=== PATIENT | male | born 1980 ===

== ENCOUNTER 2018-06-05 11:06 | Inpatient (IN) ==
[2018-06-05] MEDS ORDERED: Morphine Inj 4 MG/ML Vial ONE (11:12)
[2018-06-05] MEDS ORDERED: HYDROmorphone PF Inj 1 MG/ML Ampul ONE (11:15)
[2018-06-05] MEDS ORDERED: Midazolam Inj 5 MG/ML 1 ML Vial ONE (11:19)
[2018-06-05] MEDS ORDERED: Propofol Inj 500 MG/50 ML Vial ONE (11:20)
[2018-06-05 11:35] LABS: Baso % (Auto) 0.6 % (0.0-2.0); Eos # (Auto) 0.1 th/mm3 (0.0-0.4); Eos % (Auto) 1.7 % (0.0-4.0); Hematocrit 40.1 % (39.0-51.0); Hemoglobin 13.1 gm/dL (13.0-17.0); Lymph # (Auto) 1.6 th/mm3 (1.0-4.8); Lymph % (Auto) 21.6 % (9.0-44.0); Mean Corpuscular HGB Conc 32.6 % (32.0-36.0); Mean Corpuscular Hemoglobin 19.5 pg (27.0-34.0); Mean Corpuscular Volume 59.8 fL (80.0-100.0); Mean Platelet Volume 8.8 fL (7.0-11.0); Mono # (Auto) 0.4 th/mm3 (0.0-0.9); Mono % (Auto) 5.6 % (0.0-8.0); Neut # (Auto) 5.2 th/mm3 (1.8-7.7); Neut % (Auto) 70.5 % (16.0-70.0); Platelet Count 218 th/mm3 (150-450); Red Blood Count 6.72 mil/mm3 (4.50-5.90); Red Cell Distribution Width 16.1 % (11.6-17.2); White Blood Count 7.4 th/mm3 (4.0-11.0)
[2018-06-05] MEDS ORDERED: Naloxone Inj 0.4 MG/ML Vial IV.PUSH PRN (11:36)
[2018-06-05] MEDS ORDERED: Post-op Orders (for Pharmacy) OTHER ONE (11:36)
[2018-06-05] MEDS ORDERED: Bisacodyl 10 MG Supp RECTAL PRN (11:36)
--- NOTE | 2018-06-05 11:40 | XR ---
EXAM DATE: 06/05/2018 11:35 AM EDT AGE/SEX: 89 years / Male INDICATIONS: Trauma alert. Fell from roof, chest, pelvis and bilateral upper extremity pain CLINICAL DATA: This is the patient's initial encounter. Patient reports that signs and symptoms have been present for 1 day and indicates a pain score of 10/10. MEDICAL/SURGICAL HISTORY: Non-responsive. Non-responsive. COMPARISON: No prior exams available for comparison. FINDINGS: Supine film on back board reveals no pneumothorax. Mediastinum is appropriate. No displaced rib fract ures. CONCLUSION: Negative AP chest from backboard for trauma. Electronically signed by: Rm Osorio MD 06/05/2018 11:39 AM EDT
--- NOTE | 2018-06-05 11:41 | XR ---
EXAM DATE: 06/05/2018 11:38 AM EDT AGE/SEX: 89 years / Male INDICATIONS: Trauma alert, fall from roof. Pain in chest, pelvis and bilateral upper extremities CLINICAL DATA: This is the patient's initial encounter. Patient reports that signs and symptoms have been present for 1 day and indicates a pain score of 10/10. MEDICAL/SURGICAL HISTORY: Non-responsive. Non-responsive. COMPARISON: No prior exams available for comparison. FINDINGS: Artifact from backboard without obvious fracture or dislocation the pelvis. CONCLUSION: Limited exam, negative Electronically signed by: Rm Osorio MD 06/05/2018 11:40 AM EDT
--- NOTE | 2018-06-05 11:42 | ED ---
HPI General Chief Complaint: Trauma Alert Stated Complaint: Trauma Alert Time Seen by Provider: 06/05/18 11:18 History of Present Illness HPI narrative: This patient presents as a trauma alert. I gave report to trauma surgeon Dr. Fajardo who was present on arrival of the patient. This is a 46- year-old male who fell off of a roof approximately 15 feet at a construction site. Reportedly had head and facial injury as well as bilateral humerus fractures. Symptoms are severe. He is in a lot of pain. Duration 1 hour. Symptoms are worse with movement. No alleviating factors. Unclear if he had LOC. His main complaint is left arm pain. Related Data Allergies Allergy/AdvReac Type Severity Reaction Status Date / Time No Allergy Information Allergy Verified 06/05/18 12:27 Available Review of Systems ROS: all other systems reviewed are negative Exam Narrative Exam Narrative: GENERAL: Well-nourished, well-developed patient in no apparent distress. SKIN: Focused skin assessment reveals no rash and nodules. Skin is Warm and dry. HEAD: Has 1 cm laceration near the right lateral orbit. There is ecchymosis there. Normocephalic. EYES: Pupils equal and round. No scleral icterus. No injection or drainage. ENT: No nasal bleeding or discharge. Mucous membranes pink and moist. NECK: Trachea midline. No JVD. C-collar maintained CARDIOVASCULAR: Regular rate and rhythm. No murmur appreciated. RESPIRATORY: No accessory muscle use. Clear to auscultation. Breath sounds equal bilaterally. GASTROINTESTINAL: Abdomen soft, non-tender, nondistended. Hepatic and splenic margins not palpable. MUSCULOSKELETAL: Has deformity of the left elbow with crepitus and obvious dislocation. He is neurovascularly intact. There is tenderness at the right elbow. No clubbing. No cyanosis. No edema. NEUROLOGICAL: Awake and screaming in pain. No obvious cranial nerve deficits. Motor grossly within normal limits. Normal speech. PSYCHIATRIC: Appropriate mood and affect; insight and judgment reduced . Course Initial Documented Vital Signs Respiratory Rate 20 06/05/18 11:38 Pulse Oximetry 99 06/05/18 11:38 Last Documented Vital Signs Respiratory Rate 17 06/05/18 12:51 Pulse Oximetry 99 06/05/18 11:38 Procedures Orthopedic Joint Reduction Joint #1: Time Out Performed: No Side: left Joint Reduction Location: elbow Analgesia: procedural sedation Local anesthetic used: other anesthetic (Propofol) Amount of anesthetic used (mL): 60 Technique Used: traction/counter-traction Post-Reduction Neuro Exam: intact Post-Reduction Vascular Exam: intact Post Reduction X-Ray Obtained: Yes Post Reduction X-Ray Results: reduced Splint Applied: Yes Patient Tolerated Procedure: well Additional Comments: 15 minutes continuous bedside time spent specifically for the joint reduction Critical Care Time Critical Care Time: Yes Total Critical Care Time: 80 Attestation: Aggregate critical care time was 80 minutes. Time to perform other separately billable procedures was not included in the critical care time. My time did not include minutes spent treating any other patients simultaneously or on activities that did not directly contribute to the patient's treatment. The services I provided to this patient were to treat and/or prevent clinically significant deterioration that could result in: Cardiopulmonary arrest, hemorrhagic shock, permanent nerve damage in the arm I provided critical care services requiring my management, as noted below: Chart data review, documentation time, medication orders and management, vital sign assessments/reviewing monitor data, ordering and reviewing lab tests, ordering and interpreting/reviewing x-rays and diagnostic studies, care of the patient and discussion of the patient with the admitting physicians. Medical Decision Making MDM Narrative Medical decision making narrative: This patient arrives critically ill as a trauma alert. 2 IVs placed and I gave him 2 L normal saline IV bolus. He was given an medicine. Trauma survey ordered. Reviewed all his images. He has a fracture dislocation of the left elbow. I gave him conscious sedation as an procedure note. Had proper reduction followed by splinting and confirmed by postreduction x-ray. He had full CT imaging as well. He was admitted to intensive care under the trauma surgeon Medical Screen Exam Complete: Yes Emergency Medical Condition: Yes Differential Diagnosis Differential Diagnosis: Hemorrhagic shock, intracranial hemorrhage, fracture dislocation of elbow Medical Records Medical records reviewed: Yes I reviewed the patient's medical records. Lab Data Lab results narrative: Labs are normal Result diagrams: 06/05/18 11:15 06/05/18 11:15 Lab Results 06/05/18 06/05/18 06/05/18 Range/Units 11:15 11:15 11:15 WBC 7.4 (4.0-11.0) th/mm3 RBC 6.72 H (4.50-5.90) mil/mm3 Hgb 13.1 (13.0-17.0) gm/dL POC Hgb (Calc) 13.9 (13.0-17.0) g/dL Hct 40.1 (39.0-51.0) % POC Hct 41.0 (39-51.0) % MCV 59.8 L (80.0-100.0) fL MCH 19.5 L (27.0-34.0) pg MCHC 32.6 (32.0-36.0) % RDW 16.1 (11.6-17.2) % Plt Count 218 (150-450) th/mm3 MPV 8.8 (7.0-11.0) fL Prelim Diff (Auto) Slide review pending Neut % (Auto) 70.5 H (16.0-70.0) % Lymph % (Auto) 21.6 (9.0-44.0) % Nicholas % (Auto) 5.6 (0.0-8.0) % Eos % (Auto) 1.7 (0.0-4.0) % Baso % (Auto) 0.6 (0.0-2.0) % Neut # (Auto) 5.2 (1.8-7.7) th/mm3 Lymph # (Auto) 1.6 (1.0-4.8) th/mm3 Nicholas # (Auto) 0.4 (0.0-0.9) th/mm3 Eos # (Auto) 0.1 (0.0-0.4) th/mm3 Baso # (Auto) 0.0 (0.0-0.2) th/mm3 WBC Differential . Diff Scan Auto diff confirmed Differential Comment . Platelet Estimate Normal (Normal) Platelet Morphology Normal (Normal) Tear Drop Cells 1+ H (None) Ovalocytes 2+ H (None) Keratocytes Occ H (None) PT 10.7 (9.8-11.6) sec INR 1.1 Ratio APTT 23.9 (23.4-31.7) sec POC Sodium 143 (137-144) mmol/L Sodium (136-145) meq/L POC Potassium 3.7 (3.6-5.0) mmol/L Potassium (3.5-5.1) meq/L POC Chloride 106 (102-111) mmol/L Chloride (98-107) meq/L Carbon Dioxide (21.0-32.0) meq/L Anion Gap (5-15) meq/L POC BUN 17 (5-21) mg/dL BUN (7-18) mg/dL Creatinine (0.60-1.30) mg/dL POC Creatinine 1.0 (0.6-1.3) mg/dL Estimated GFR (>89) mL/min POC Glucose 166 H (68-110) mg/dL Random Glucose (74-106) mg/dL Calcium (8.5-10.1) mg/dL Serum Alcohol (0-5) mg/dL Blood Type Antibody Screen 06/05/18 06/05/18 Range/Units 11:15 11:15 WBC (4.0-11.0) th/mm3 RBC (4.50-5.90) mil/mm3 Hgb (13.0-17.0) gm/dL POC Hgb (Calc) (13.0-17.0) g/dL Hct (39.0-51.0) % POC Hct (39-51.0) % MCV (80.0-100.0) fL MCH (27.0-34.0) pg MCHC (32.0-36.0) % RDW (11.6-17.2) % Plt Count (150-450) th/mm3 MPV (7.0-11.0) fL Prelim Diff (Auto) Neut % (Auto) (16.0-70.0) % Lymph % (Auto) (9.0-44.0) % Nicholas % (Auto) (0.0-8.0) % Eos % (Auto) (0.0-4.0) % Baso % (Auto) (0.0-2.0) % Neut # (Auto) (1.8-7.7) th/mm3 Lymph # (Auto) (1.0-4.8) th/mm3 Nicholas # (Auto) (0.0-0.9) th/mm3 Eos # (Auto) (0.0-0.4) th/mm3 Baso # (Auto) (0.0-0.2) th/mm3 WBC Differential Diff Scan Differential Comment Platelet Estimate (Normal) Platelet Morphology (Normal) Tear Drop Cells (None) Ovalocytes (None) Keratocytes (None) PT (9.8-11.6) sec INR Ratio APTT (23.4-31.7) sec POC Sodium (137-144) mmol/L Sodium 144 (136-145) meq/L POC Potassium (3.6-5.0) mmol/L Potassium 3.8 (3.5-5.1) meq/L POC Chloride (102-111) mmol/L Chloride 111 H (98-107) meq/L Carbon Dioxide 25.7 (21.0-32.0) meq/L Anion Gap 7 (5-15) meq/L POC BUN (5-21) mg/dL BUN 18 (7-18) mg/dL Creatinine 1.17 (0.60-1.30) mg/dL POC Creatinine (0.6-1.3) mg/dL Estimated GFR 54 L (>89) mL/min POC Glucose (68-110) mg/dL Random Glucose 164 H (74-106) mg/dL Calcium 8.7 (8.5-10.1) mg/dL Serum Alcohol Less than 3 (0-5) mg/dL Blood Type A Positive Antibody Screen Negative Imaging Data Attestation: I personally reviewed and interpreted this imaging study as follows : My impression: Patient has a fracture right radial head. There is a fracture dislocation of left elbow. Chest CT shows fracture of the right fourth and fifth rib without pneumothorax. Radiologist's impression: Humerus X-Ray 06/05/18 00:00 CONCLUSION: Possible fracture of the right radial head. Suggest dedicated views of the right elbow when patient condition permits. Humerus is intact without fracture. Humerus X-Ray 06/05/18 00:00 CONCLUSION: Fracture dislocation at the elbow joint with a fracture through the radial head. Associated soft tissue swelling is present. The left humerus is intact. Radius/Ulna X-Ray 06/05/18 00:00 CONCLUSION: Questionable fracture involving the radial head. Suggest multiple dedicated views of the elbow for further evaluation. Radius/Ulna X-Ray 06/05/18 00:00 CONCLUSION: Complete posterior elbow dislocation and suspected fracture through the radial head. Radius/Ulna X-Ray 06/05/18 00:00 CONCLUSION: 1. Reduction of the elbow joint dislocation. 2. However, there are osseous densities projecting over the antecubital fossa which may represent displaced fracture fragments the joint space. Chest X-Ray 06/05/18 11:09 CONCLUSION: Negative AP chest from backboard for trauma. Pelvis X-Ray 06/05/18 11:09 CONCLUSION: Limited exam, negative Abdomen/Pelvis CT 06/05/18 11:14 CONCLUSION: 1. No acute injury is identified within the abdomen or pelvis. 2. Small hiatal hernia with dilated fluid-filled distal esophagus. Chest CT 06/05/18 11:14 CONCLUSION: 1. There are acute fractures of the right fourth and fifth ribs, as above. No pneumothorax is present. No other acute abnormality is identified. 2. Dilated fluid-filled esophagus likely secondary to reflux. Cervical Spine CT 06/05/18 11:15 CONCLUSION: No acute cervical spine abnormality is identified. There is multilevel degenerative disc disease. Face CT 06/05/18 11:15 CONCLUSION: 1. No maxillofacial fracture is identified. 2. There is right frontal scalp and right periorbital soft tissue swelling. Head CT 06/05/18 11:15 CONCLUSION: 1. Right frontal scalp and right periorbital soft tissue swelling. There is associated subcutaneous air suggesting laceration or open wound. 2. The skull fracture or acute intracranial abnormality is identified. . Discharge Plan Physicians Team ED Provider: Vijay Schuster Attending Provider: Mo Gillis Other Providers: Vinnie Singh Status ED Status: Admitted Patient
[2018-06-05 11:45] LABS: Activated Partial Thrombo Time 23.9 sec (23.4-31.7); INR 1.1 Ratio; Prothrombin Time 10.7 sec (9.8-11.6)
[2018-06-05 11:49] LABS: Anion Gap 7 meq/L (5-15); Blood Urea Nitrogen 18 mg/dL (7-18); Calcium 8.7 mg/dL (8.5-10.1); Carbon Dioxide 25.7 meq/L (21.0-32.0); Chloride 111 meq/L (98-107); Glomerular Filtration Rate 54 mL/min (>89); Glucose,Random 164 mg/dL (74-106); Potassium 3.8 meq/L (3.5-5.1); Sodium 144 meq/L (136-145)
--- NOTE | 2018-06-05 11:56 | XR ---
EXAM DATE: 06/05/2018 11:45 AM EDT AGE/SEX: 89 years / Male INDICATIONS: Trauma alert, fall from roof. Pain in chest, pelvis and bilateral upper extremities CLINICAL DATA: This is the patient's initial encounter. Patient reports that signs and symptoms have been present for 1 day and indicates a pain score of 10/10. MEDICAL/SURGICAL HISTORY: Non-responsive. Non-responsive. COMPARISON: [facility], FOREARM RIGHT 1V, 06/05/2018. . FINDINGS: Single AP view of the right humerus demonstrates no humerus fracture. Medial aspect of the humeral he ad is not completely visualized. There is possible fracture of the right radial head. No soft tissue abnormality or concerning radiopaque foreign body is identified. CONCLUSION: Possible fracture of the right radial head. Suggest dedicated views of the right elbow when patient c ondition permits. Humerus is intact without fracture. Electronically signed by: Rubin Quiroz MD 06/05/2018 11:54 AM EDT
--- NOTE | 2018-06-05 11:59 | CT ---
EXAM DATE: 06/05/2018 11:51 AM EDT AGE/SEX: 89 years / Male INDICATIONS: TRAUMA ALERT. Fall from roof. CLINICAL DATA: This is the patient's initial encounter. Patient reports that signs and symptoms have been present for 1 day and indicates a pain score of Nonresponsive. MEDICAL/SURGICAL HISTORY: Non-responsive. Non-responsive. RADIATION DOSE: 64.63 CTDI (mGy) COMPARISON: No prior exams available for comparison. TECHNIQUE: CT of the head without contrast. Using automated exposure control and adjustment of the mA and/or kV according to patient size, radiation dose was kept as low as reasonably achievable to ob tain optimal diagnostic quality images. DICOM format image data is available electronically for revi ew and comparison. FINDINGS: Cerebrum: The ventricles are normal. No midline shift, mass lesion, hemorrhage or acute infarction. No extraaxial fluid collections are seen. Posterior Fossa: The cerebellum and brainstem demonstrate no acute abnormality. The 4th ventricle is midline. The cerebellopontine angle is within normal limits. Extracranial: There is a right frontal scalp and right periorbital soft tissue swelling with subcuta neous air. The globes have a normal appearance. Skull: The calvaria is intact. No skull fracture. CONCLUSION: 1. Right frontal scalp and right periorbital soft tissue swelling. There is associated subcutaneous air suggesting laceration or open wound. 2. The skull fracture or acute intracranial abnormality is identified. . Electronically signed by: Rubin Quiroz MD 06/05/2018 11:58 AM EDT
--- NOTE | 2018-06-05 12:00 | XR ---
EXAM DATE: 06/05/2018 11:47 AM EDT AGE/SEX: 89 years / Male INDICATIONS: Trauma alert. Patient fell from the roof. CLINICAL DATA: This is the patient's initial encounter. Patient reports that signs and symptoms have been present for 1 day and indicates a pain score of 10/10. MEDICAL/SURGICAL HISTORY: None. None. COMPARISON: [facility], FOREARM LEFT 1V, 06/05/2018. [facility], FOREARM LEFT 1V, 06/05/2018. . FINDINGS: Single view of the left humerus demonstrates fracture dislocation at the elbow joint with fracture th rough the radial head. The humerus is intact. Acromioclavicular joint demonstrates no abnormality. Th ere is soft tissue swelling around the elbow joint. No concerning radiopaque foreign body is identifi ed. CONCLUSION: Fracture dislocation at the elbow joint with a fracture through the radial head. Associated soft tiss ue swelling is present. The left humerus is intact. Electronically signed by: Rbuin Quiroz MD 06/05/2018 11:59 AM EDT
--- NOTE | 2018-06-05 12:02 | XR ---
EXAM DATE: 06/05/2018 11:49 AM EDT AGE/SEX: 89 years / Male INDICATIONS: Trauma alert. Patient fell from a roof. CLINICAL DATA: This is the patient's initial encounter. Patient reports that signs and symptoms have been present for 1 day and indicates a pain score of 10/10. MEDICAL/SURGICAL HISTORY: None. None. COMPARISON: [facility], HUMERUS RIGHT 1V, 06/05/2018. . FINDINGS: Single view of the forearm demonstrates no definite dislocation. However, there is a questionable abn ormality/fracture involving the radial head. Distal radius and ulna are intact. Visualized portions o f the wrist demonstrate no abnormality. There may be soft tissue swelling in the volar aspect of the proximal forearm. CONCLUSION: Questionable fracture involving the radial head. Suggest multiple dedicated views of the elbow for fu rther evaluation. Electronically signed by: Rubin Quiroz MD 06/05/2018 12:01 PM EDT
--- NOTE | 2018-06-05 12:03 | XR ---
EXAM DATE: 06/05/2018 11:42 AM EDT AGE/SEX: 89 years / Male INDICATIONS: Trauma alert, fall from roof. Pain in chest, pelvis and bilateral upper extremities CLINICAL DATA: This is the patient's initial encounter. Patient reports that signs and symptoms have been present for 1 day and indicates a pain score of 10/10. MEDICAL/SURGICAL HISTORY: Non-responsive. Non-responsive. COMPARISON: [facility] [place], HUMERUS LEFT 1V, 06/05/2018. . FINDINGS: Single view of the left forearm demonstrates dislocation at the elbow joint with proximal migration o f the radius and ulna. There is associated soft tissue swelling. The single view of the humerus obtai lorene today suggest a fracture through the radial head. There is soft tissue swelling around the elbow joint. No radiopaque foreign body is identified. CONCLUSION: Complete posterior elbow dislocation and suspected fracture through the radial head. Electronically signed by: Rubin Quiroz MD 06/05/2018 12:02 PM EDT
[2018-06-05 12:06] LABS: Ovalocytes 2+; Tear Drop Cells 1+
[2018-06-05 12:07] LABS: Platelet Estimate Normal (Normal); Platelet Morphology Normal (Normal)
--- NOTE | 2018-06-05 12:07 | XR ---
EXAM DATE: 06/05/2018 11:44 AM EDT AGE/SEX: 89 years / Male INDICATIONS: Post reduction of the left elbow. Trauma alert. Patient fell from roof. CLINICAL DATA: This is the patient's subsequent encounter. Patient reports that signs and symptoms h ave been present for 1 day and indicates a pain score of 10/10. MEDICAL/SURGICAL HISTORY: None. None. COMPARISON: [facility] [place] 1[place], [place]. . FINDINGS: Single view of the left forearm demonstrates reduction of the elbow joint dislocation. There are ossi fic densities projecting over the antecubital fossa region which may represent fracture fragments. Di stal radius and ulna are within normal limits. There is casting material along the posterior aspect o f the elbow. No radiopaque foreign body is identified. CONCLUSION: 1. Reduction of the elbow joint dislocation. 2. However, there are osseous densities projecting over the antecubital fossa which may represent di splaced fracture fragments the joint space. Electronically signed by: Rubin Quiroz MD 06/05/2018 12:06 PM EDT
--- NOTE | 2018-06-05 12:22 | CT ---
EXAM DATE: 06/05/2018 11:59 AM EDT AGE/SEX: 89 years / Male INDICATIONS: TRAUMA ALERT. Fall from a roof. CLINICAL DATA: This is the patient's initial encounter. Patient reports that signs and symptoms have been present for 1 day and indicates a pain score of Nonresponsive. MEDICAL/SURGICAL HISTORY: Non-responsive. Non-responsive. RADIATION DOSE: 5.88 CTDI (mGy) COMPARISON: No prior exams available for comparison. TECHNIQUE: Multiple contiguous axial images were obtained through the chest during bolus infusion of 94 ml Omnipaque 350 (iohexol) nonionic water-soluble contrast as a single exam dose. Images were obtained in suspended respiration using multiple row detector helical technique. Using automated exp osure control and adjustment of the mA and/or kV according to patient size, radiation dose was kept a s low as reasonably achievable to obtain optimal diagnostic quality images. DICOM format image data is available electronically for review and comparison. FINDINGS: There is respiratory motion artifact. Lungs: There is dependent atelectasis. No pneumothorax or airspace consolidation is present. Mediastinum: The heart and great vessels demonstrate no acute abnormality. There is pulsation artifa ct at the aortic root. No lymphadenopathy is identified. Pleurae: No pleural effusion or pleural thickening. Axillae: No lymphadenopathy. Musculoskeletal: There is an acute nondisplaced fracture of the right posterior fourth rib and the p osterior and lateral fifth rib. No other fracture is identified. Other: Esophagus is dilated and mostly fluid-filled. Please refer to abdomen and pelvis CT report fo r description of the subdiaphragmatic findings. CONCLUSION: 1. There are acute fractures of the right fourth and fifth ribs, as above. No pneumothorax is presen t. No other acute abnormality is identified. 2. Dilated fluid-filled esophagus likely secondary to reflux. Electronically signed by: Rubin Quiroz MD 06/05/2018 12:21 PM EDT
--- NOTE | 2018-06-05 12:23 | MH ---
cc: Mo Gillis MD DATE OF ADMISSION: 06/05/2018 ADMITTING DIAGNOSIS: Fall from a height. HISTORY OF PRESENT ILLNESS: This 28ish year-old male who fell off a scaffolding apparently more than 7 feet, landed apparently on his face and right side of the body. He was brought into our institution as per T1 trauma alert. On arrival, the patient is awake, alert, oriented, screaming and yelling complaining about pain in his left arm. PAST MEDICAL AND SURGICAL HISTORY: Unknown. CURRENT MEDICATIONS: Unknown. ALLERGIES: UNKNOWN. PHYSICAL EXAMINATION: GENERAL: Reveals a 25 to 30ish year-old male. HEENT: Normocephalic. Trauma to the head, consisting of bruising and swelling over the right side of the face, possible deformity of the orbit. Pupils are equal and reactive. Extraocular muscles appear to be intact. As I noted, periorbital swelling on the right. No hemotympanum. No rodriguez sign, no raccoon's eyes. NECK: Bilateral carotid pulses. No signs of trauma to the neck. LUNGS: Bilateral breath sounds. HEART: Regular rate and rhythm. CHEST: No signs of trauma to the chest. The patient is not tender on palpation of the chest. The patient has a scar from previous chest tube on the right. ABDOMEN: Soft. No rebound, no guarding, no masses. PELVIS: Appears to be stable. No signs of trauma to the pelvis. EXTREMITIES: The patient has bilateral femoral, popliteal, dorsalis pedis and posterior tibial pulses, bilateral brachial, ulnar and radial pulses. The patient is a clear deformity of the left elbow consistent with dislocation of the same and possible fracture. X-rays were obtained and this has been immediately reduced. On the right side, the patient has some swelling over the right elbow, possibly a fracture either of the radius or humerus or trochlea. The patient will have this worked up more closely. Log rolling to the back, does not reveal any injuries. NEUROLOGIC: The patient is fully intact. He is awake, alert, oriented. Motorically and sensory fully intact. No deficit with limitations of movement of the left arm due to pain. Cranial nerves 2-12 are normal. PLAN: The patient is resuscitating on the trauma principles. Primary, secondary survey resuscitation and definitive care are carried out. The patient undergoes a full workup with a CAT scan, will be placed in the hospital and appropriate consults obtained. Critical care time 40 minutes. MD SHANNON Smith/lori , 11:46 AM , 11:54 AM
[2018-06-05] MEDS: HYDROmorphone PF Inj 1 MG/ML Ampul IV.PUSH PRN ×4 (12:24→20:43)
--- NOTE | 2018-06-05 12:25 | CT ---
EXAM DATE: 06/05/2018 12:02 PM EDT AGE/SEX: 89 years / Male INDICATIONS: TRAUMA ALERT. Fall from a roof. CLINICAL DATA: This is the patient's initial encounter. Patient reports that signs and symptoms have been present for 1 day and indicates a pain score of Nonresponsive. MEDICAL/SURGICAL HISTORY: Non-responsive. Non-responsive. ORAL CONTRAST: No oral contrast ingested. RADIATION DOSE: 5.88 CTDI (mGy) ; Combined studies COMPARISON: No prior exams available for comparison. TECHNIQUE: Multiple contiguous axial images were obtained through the abdomen and pelvis following b olus infusion of 94 ml Omnipaque 350 (iohexol) nonionic water-soluble contrast as a cumulative dose for multiple exams. No oral contrast ingested. Using automated exposure control and adjustment of t he mA and/or kV according to patient size, radiation dose was kept as low as reasonably achievable to obtain optimal diagnostic quality images. DICOM format image data is available electronically for r eview and comparison. FINDINGS: Lower chest: Please refer to chest CT report for description of the supradiaphragmatic findings. Hepatobiliary: No acute injury is identified. No calcified gallstones are present. Kidneys: No hydronephrosis, stone, or mass. Adrenal Glands: Within normal limits. Spleen: No acute injury. Pancreas: Within normal limits. Vascular: The aorta is nonaneurysmal. No acute injury. Bowel/Mesentery: There is a small hiatal hernia with distal esophagus being dilated and fluid-filled. No bowel injury is identified. There is no free intraperitoneal air or fluid. Abdominal Wall: No hernia is visualized. Retroperitoneum: No lymphadenopathy. Bladder: No wall thickening or mass. Reproductive: Within normal limits. Inguinal: No lymphadenopathy or hernia. Musculoskeletal: No acute osseous abnormality is identified. There is a bone island in the left femor al head. CONCLUSION: 1. No acute injury is identified within the abdomen or pelvis. 2. Small hiatal hernia with dilated fluid-filled distal esophagus. Electronically signed by: Rubin Quiroz MD 06/05/2018 12:24 PM EDT
--- NOTE | 2018-06-05 12:31 | CT ---
EXAM DATE: 06/05/2018 11:53 AM EDT AGE/SEX: 89 years / Male INDICATIONS: TRAUMA ALERT. Fall from a roof. CLINICAL DATA: This is the patient's initial encounter. Patient reports that signs and symptoms have been present for 1 day and indicates a pain score of Nonresponsive. MEDICAL/SURGICAL HISTORY: Non-responsive. Non-responsive. RADIATION DOSE: 15.89 CTDI (mGy) COMPARISON: No prior exams available for comparison. TECHNIQUE: Contiguous axial images were obtained using helical multirow detector technique. The vol umetric data was post-processed with multiplanar reconstruction in oblique axial, sagittal, and coron al planes. Using automated exposure control and adjustment of the mA and/or kV according to patient s ize, radiation dose was kept as low as reasonably achievable to obtain optimal diagnostic quality judy ges. DICOM format image data is available electronically for review and comparison. FINDINGS: There is normal sagittal spinal alignment without anterolisthesis or retrolisthesis. No fracture or d islocation is identified. The atlantoaxial relationship is within normal limits and there is no preve rtebral soft tissue swelling. Mild degenerative disc disease is appreciated at C3-C4 and extending th rough C6-C7. No large acute disc herniation is seen in the upper cervical spine. The visualized surro unding structures demonstrate no acute finding. CONCLUSION: No acute cervical spine abnormality is identified. There is multilevel degenerative disc disease. Electronically signed by: Rubin Quiroz MD 06/05/2018 12:30 PM EDT
--- NOTE | 2018-06-05 12:34 | CT ---
EXAM DATE: 06/05/2018 11:55 AM EDT AGE/SEX: 89 years / Male INDICATIONS: TRAUMA ALERT. Fall from a roof. CLINICAL DATA: This is the patient's initial encounter. Patient reports that signs and symptoms have been present for 1 day and indicates a pain score of Nonresponsive. MEDICAL/SURGICAL HISTORY: Non-responsive. Non-responsive. RADIATION DOSE: 21.96 CTDI (mGy) COMPARISON: No prior exams available for comparison. TECHNIQUE: Contiguous images in the axial and coronal planes were obtained using helical multirow de tector technique. Using automated exposure control and adjustment of the mA and/or kV according to p atient size, radiation dose was kept as low as reasonably achievable to obtain optimal diagnostic zaira lity images. DICOM format image data is available electronically for review and comparison. FINDINGS: Orbits: No fracture. The retroconal structures have a normal configuration. No radiopaque foreign bodies are seen. Nasal Bones: The nasal bones and maxillary spine are intact. Zygomatic Arches: Symmetric without fracture. Sinuses: The maxillary, ethmoid, and frontal sinuses are intact. There is minimal mucoperiosteal thi ckening in the sphenoid sinus. Nasal Cavity: The nasal septum is intact and midline. Soft Tissues: No radiopaque foreign body is visualized. There is right periorbital and right frontal scalp soft tissue swelling with subcutaneous air. Other: The mandible and pterygoid plates are intact. Visualized intracranial structures demonstrate n o acute abnormality. CONCLUSION: 1. No maxillofacial fracture is identified. 2. There is right frontal scalp and right periorbital soft tissue swelling. Electronically signed by: Rubin Quiroz MD 06/05/2018 12:33 PM EDT
[2018-06-05] MEDS: Sod Chloride 0.9% Inj 1,000 ML IV.CONT SCH ×2 (13:01→22:24)
--- NOTE | 2018-06-05 14:09 | P.PNCC ---
Subjective Brief History: This 38ish year-old male who fell off a scaffolding apparently more than 7 feet , landed apparently on his face and right side of the body. He was brought into our institution as per T1 trauma alert. On arrival, the patient is awake, alert, oriented, screaming and yelling complaining about pain in his left arm. Patient undergoes full diagnostic and clinical workup and is found to have Periorbital soft tissue swelling right Right proximal radius fracture Left proximal radius fracture and dislocation of the left elbow/reduced in trauma room Cuts and bruises Appropriate services are consulted for further care Objective Vital Signs / I&O: Vital Signs 06/05/18 11:38 06/05/18 12:18 06/05/18 12:27 Temperature 98.5 F Pulse Rate 96 H 94 H Respiratory Rate 20 18 21 Blood Pressure 136/68 Pulse Oximetry 99 95 95 06/05/18 12:51 06/05/18 12:53 06/05/18 13:05 Temperature Pulse Rate 81 Respiratory Rate 17 17 20 Blood Pressure 130/59 L Pulse Oximetry 100 Intake & Output 06/04/18 06/05/18 06/05/18 18:59 06:59 18:59 Weight 73.8 kg Other: Weight On Admission 73.8 kg Result Diagrams: 06/05/18 11:15 06/05/18 11:15 Imaging: Impressions Humerus X-Ray 06/05/18 00:00 CONCLUSION: Possible fracture of the right radial head. Suggest dedicated views of the right elbow when patient condition permits. Humerus is intact without fracture. Humerus X-Ray 06/05/18 00:00 CONCLUSION: Fracture dislocation at the elbow joint with a fracture through the radial head. Associated soft tissue swelling is present. The left humerus is intact. Radius/Ulna X-Ray 06/05/18 00:00 CONCLUSION: Questionable fracture involving the radial head. Suggest multiple dedicated views of the elbow for further evaluation. Radius/Ulna X-Ray 06/05/18 00:00 CONCLUSION: Complete posterior elbow dislocation and suspected fracture through the radial head. Radius/Ulna X-Ray 06/05/18 00:00 CONCLUSION: 1. Reduction of the elbow joint dislocation. 2. However, there are osseous densities projecting over the antecubital fossa which may represent displaced fracture fragments the joint space. Chest X-Ray 06/05/18 11:09 CONCLUSION: Negative AP chest from backboard for trauma. Pelvis X-Ray 06/05/18 11:09 CONCLUSION: Limited exam, negative Abdomen/Pelvis CT 06/05/18 11:14 CONCLUSION: 1. No acute injury is identified within the abdomen or pelvis. 2. Small hiatal hernia with dilated fluid-filled distal esophagus. Chest CT 06/05/18 11:14 CONCLUSION: 1. There are acute fractures of the right fourth and fifth ribs, as above. No pneumothorax is present. No other acute abnormality is identified. 2. Dilated fluid-filled esophagus likely secondary to reflux. Cervical Spine CT 06/05/18 11:15 CONCLUSION: No acute cervical spine abnormality is identified. There is multilevel degenerative disc disease. Face CT 06/05/18 11:15 CONCLUSION: 1. No maxillofacial fracture is identified. 2. There is right frontal scalp and right periorbital soft tissue swelling. Head CT 06/05/18 11:15 CONCLUSION: 1. Right frontal scalp and right periorbital soft tissue swelling. There is associated subcutaneous air suggesting laceration or open wound. 2. The skull fracture or acute intracranial abnormality is identified. .
[2018-06-05] MEDS: Lidocaine 5% Patch T-DERMAL SCH (15:14)
[2018-06-05] MEDS: Methocarbamol 500 MG Tablet PO SCH ×2 (15:14→22:25)
--- NOTE | 2018-06-05 15:40 | XR ---
EXAM DATE: 06/05/2018 3:28 PM EDT AGE/SEX: 89 years / Male INDICATIONS: Pain from fall from roof. CLINICAL DATA: This is the patient's initial encounter. Patient reports that signs and symptoms have been present for 1 day and indicates a pain score of 8/10. MEDICAL/SURGICAL HISTORY: None. None. COMPARISON: [facility] – [place] 1V, 06/05/2018. . FINDINGS: 4 views of the left elbow demonstrate posterior dislocation of the radial head relationship to the ca pitellum. Radial head demonstrates a comminuted fracture. There is joint space widening between the t rochlea and ulna. Anterior fat-pad is visualized and posterior elbow is obscured by overlying casting material. No radiopaque foreign body is identified. CONCLUSION: 1. Posteriorly displaced radial head with a comminuted fracture. 2. Abnormal widening of the joint space between the ulna and trochlea. Electronically signed by: Rubin Quiroz MD 06/05/2018 3:38 PM EDT
--- NOTE | 2018-06-05 15:42 | XR ---
EXAM DATE: 06/05/2018 3:29 PM EDT AGE/SEX: 89 years / Male INDICATIONS: Pain from fall from roof. CLINICAL DATA: This is the patient's initial encounter. Patient reports that signs and symptoms have been present for 1 day and indicates a pain score of 8/10. MEDICAL/SURGICAL HISTORY: None. None. COMPARISON: [facility] – [place] 1V, 06/05/2018. . FINDINGS: 4 views of the right elbow demonstrate a fracture through the radial head fracture line extending int o the joint space. The radial head fragment appears displaced up to 5 mm. No dislocation is appreciat ed. Suspected joint effusion is present. No acute soft tissue abnormality is identified. CONCLUSION: Displaced radial head fracture. Electronically signed by: Rubin Quiroz MD 06/05/2018 3:40 PM EDT
[2018-06-05] MEDS: Senna/Docusate Sodium 8.6/50 MG Tablet PO SCH (20:42)
[2018-06-05] MEDS: Famotidine 20 MG Tablet PO SCH (20:42)
[2018-06-06] MEDS: HYDROmorphone PF Inj 1 MG/ML Ampul IV.PUSH PRN ×5 (00:52→22:56)
--- NOTE | 2018-06-06 05:07 | XR ---
EXAM DATE: 06/06/2018 5:05 AM EDT AGE/SEX: 89 years / Male INDICATIONS: Follow up trauma. CLINICAL DATA: This is the patient's subsequent encounter. Patient reports that signs and symptoms h ave been present for 2 days and indicates a pain score of 5/10. MEDICAL/SURGICAL HISTORY: None. None. COMPARISON: [facility] – [place], CHEST 1V SINGLE AP, 06/05/2018. . FINDINGS: Mild bibasilar contusions or atelectasis. Cardiac contours are satisfactory. No significant hemothora x or pneumothorax. CONCLUSION: Mild bibasilar parenchymal opacities Electronically signed by: Rubin Guerra MD 06/06/2018 5:06 AM EDT
[2018-06-06] MEDS: Methocarbamol 500 MG Tablet PO SCH ×4 (05:36→22:08)
[2018-06-06] MEDS: Sod Chloride 0.9% Inj 1,000 ML IV.CONT SCH (06:50)
[2018-06-06] MEDS: Famotidine 20 MG Tablet PO SCH ×2 (08:27→20:25)
[2018-06-06] MEDS: Lidocaine 5% Patch T-DERMAL SCH (08:27)
[2018-06-06] MEDS: Senna/Docusate Sodium 8.6/50 MG Tablet PO SCH ×2 (08:27→20:24)
--- NOTE | 2018-06-06 09:16 | P.CONOP ---
[facility] Orthopedics Consult Note - [facility] Consult date: 06/06/18 Requesting physician: Vijay Schuster (ER Staff) Consult reason: fracture Chief complaint: Multitrauma, L elbow dislocation, head/facial inju Narrative: [id number] man whose name is Clark presented to [facility] yesterday as a trauma alert after a fall from a roof, approximately 12-15 feet high. 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 He admits he landed onto his bilateral upper extremities. After evaluation and radiographs it appears that the patient suffered a left elbow dislocation. The joint was appropriately reduced by ER staff. Further x-rays do reveal bilateral radial head fractures. Patient has no prior orthopedic injuries. Other musculoskeletal injuries include fractures of the right fourth and fifth ribs. Patient previously ambulated unassisted. No other complaints identified <Dari Mccoy" - Last Filed: 06/06/18 09:08> Review of Systems All other systems reviewed negative except as stated in HPI <Dari Mccoy" - Last Filed: 06/06/18 09:08> PMFSH - History History Provided By: Patient - Tobacco History Second Hand Smoke Exposure: Yes Tobacco Use In Past 30 Days: Yes Smoking Status: Current every day smoker Tobacco Type: Cigarettes - Alcohol History How Often Do You Have a Drink Containing Alcohol: Monthly or less - Substance Use History Substance History: Active Abuse - Substance Use Type Marijuana Status: Active Route Used: Inhalation Reason for Use: Calm Down - Immunization History Tetanus Immunization: >5 Years Hx Influenza Vaccine This Season: No <Dari Mccoy" - Last Filed: 06/06/18 09:08> Medications and Allergies Active Medications: Active Medications Al Hydroxide/Mg Hydroxide (Milk Of Eliu Liq) 30 ml PO Q12H PRN PRN Reason: Mild Constipation Albuterol (Duoneb Neb (Prn)) 1 ampul NEB Q2HR NEB PRN PRN Reason: SHORTNESS OF BREATH Bacitracin (Baciguent Oint) 1 applicatio TOPICAL BID [facility] Last Admin: 06/05/18 22:25 Dose: 1 applicatio Bisacodyl (Dulcolax Supp) 10 mg RECTAL DAILY PRN PRN Reason: SEVERE CONSITIPATION Enoxaparin Sodium (Lovenox Inj) 40 mg SQ Q24H [facility] Famotidine (Pepcid) 20 mg PO BID [facility] Last Admin: 06/06/18 08:27 Dose: Not Given Hydromorphone HCl (Dilaudid Pf Inj) 1 mg IV.PUSH Q3H PRN PRN Reason: PAIN 6-10 Last Admin: 06/06/18 05:37 Dose: 1 mg Sodium Chloride (Ns Inj) 1,000 mls @ 100 mls/hr IV.CONT .Q10H [facility] Last Admin: 06/06/18 06:50 Dose: 100 mls/hr Lactulose (Lactulose Liq) 30 ml PO DAILY PRN PRN Reason: SEVERE CONSITIPATION Lidocaine HCl (Lidoderm 5% Patch.12 Hr) 1 patch T-DERMAL DAILY [facility] Last Admin: 06/06/18 08:27 Dose: Not Given Methocarbamol (Robaxin) 500 mg PO Q8HR [facility] Last Admin: 06/06/18 05:36 Dose: 500 mg Naloxone HCl (Narcan Inj) 0.4 mg IV.PUSH UNSCH PRN PRN Reason: SEE LABEL COMMENTS Ondansetron HCl (Zofran Inj) 4 mg IV.PUSH Q6H PRN PRN Reason: NAUSEA OR VOMITING Oxycodone HCl (Roxicodone) 5 mg PO Q4H PRN PRN Reason: PAIN SCALE 3 TO 5 Last Admin: 06/06/18 09:06 Dose: 5 mg Patch Removal (Remove Old Patch) 1 each T-DERMAL HS [facility] Last Admin: 06/05/18 20:42 Dose: 1 each Senna/Docusate Sodium (Negar-Colace) 1 tab PO BID [facility] Last Admin: 06/06/18 08:27 Dose: Not Given Sennosides (Senokot) 17.2 mg PO Q12H PRN PRN Reason: Moderate Constipation <Dari Mccoy "Marilyn" - Last Filed: 06/06/18 09:08> Active Medications: Active Medications Al Hydroxide/Mg Hydroxide (Milk Of Magnesia Liq) 30 ml PO Q12H PRN PRN Reason: Mild Constipation Albuterol (Duoneb Neb (Prn)) 1 ampul NEB Q2HR NEB PRN PRN Reason: SHORTNESS OF BREATH Bacitracin (Baciguent Oint) 1 applicatio TOPICAL BID [facility] Last Admin: 06/06/18 09:00 Dose: 1 applicatio Bisacodyl (Dulcolax Supp) 10 mg RECTAL DAILY PRN PRN Reason: SEVERE CONSITIPATION Enoxaparin Sodium (Lovenox Inj) 40 mg SQ Q24H [facility] Famotidine (Pepcid) 20 mg PO BID [facility] Last Admin: 06/06/18 08:27 Dose: Not Given Fentanyl (Duragesic 50 Mcg Patch.72hr) 1 patch T-DERMAL Q3D [facility] Last Admin: 06/06/18 13:23 Dose: 1 patch Hydromorphone HCl (Dilaudid Pf Inj) 1 mg IV.PUSH Q3H PRN PRN Reason: PAIN 6-10 Last Admin: 06/06/18 09:42 Dose: 1 mg Ketorolac Tromethamine (Toradol Inj) 15 mg IV.PUSH Q6H [facility] Stop: 06/10/18 13:59 Last Admin: 06/06/18 13:23 Dose: 15 mg Lactulose (Lactulose Liq) 30 ml PO DAILY PRN PRN Reason: SEVERE CONSITIPATION Lidocaine HCl (Lidoderm 5% Patch.12 Hr) 1 patch T-DERMAL DAILY [facility] Last Admin: 06/06/18 08:27 Dose: Not Given Methocarbamol (Robaxin) 500 mg PO Q8HR [facility] Last Admin: 06/06/18 05:36 Dose: 500 mg Naloxone HCl (Narcan Inj) 0.4 mg IV.PUSH UNSCH PRN PRN Reason: SEE LABEL COMMENTS Ondansetron HCl (Zofran Inj) 4 mg IV.PUSH Q6H PRN PRN Reason: NAUSEA OR VOMITING Oxycodone HCl (Roxicodone) 5 mg PO Q4H PRN PRN Reason: PAIN SCALE 3 TO 5 Last Admin: 06/06/18 09:06 Dose: 5 mg Patch Removal (Remove Old Patch) 1 each T-DERMAL HS [facility] Last Admin: 06/05/18 20:42 Dose: 1 each Patch Removal (Remove Old Patch) 1 each T-DERMAL Q3D [facility] Senna/Docusate Sodium (Negar-Colace) 1 tab PO BID [facility] Last Admin: 06/06/18 08:27 Dose: Not Given Sennosides (Senokot) 17.2 mg PO Q12H PRN PRN Reason: Moderate Constipation <Vinnie Singh - Last Filed: 06/06/18 13:34> Allergies Allergy/AdvReac Type Severity Reaction Status Date / Time No Allergy Information Allergy Verified 06/05/18 12:27 Available Exam Vital signs: Vital Signs 06/05/18 11:38 06/05/18 12:18 06/05/18 12:27 Temperature 98.5 F Pulse Rate 96 H 94 H Respiratory Rate 20 18 21 Blood Pressure 136/68 Pulse Oximetry 99 95 95 06/05/18 12:51 06/05/18 12:53 06/05/18 13:05 Temperature Pulse Rate 81 Respiratory Rate 17 17 20 Blood Pressure 130/59 L Pulse Oximetry 100 06/05/18 13:30 06/05/18 14:00 06/05/18 14:30 Temperature 98.5 F Pulse Rate 88 81 91 H Respiratory Rate 27 H 20 28 H Blood Pressure 138/69 143/67 H 158/71 H Pulse Oximetry 93 L 99 96 06/05/18 15:10 06/05/18 17:21 06/05/18 20:00 Temperature 97.6 F 98 F Pulse Rate 76 79 Respiratory Rate 18 14 18 Blood Pressure 138/66 122/55 L Pulse Oximetry 95 97 06/06/18 00:00 06/06/18 04:00 Temperature 97.9 F 97.9 F Pulse Rate 70 86 Respiratory Rate 18 20 Blood Pressure 120/58 L 112/61 Pulse Oximetry 96 96 Intake & Output 06/05/18 06/06/18 06/06/18 18:59 06:59 18:59 Intake Total 2250 / 2250 1791 / 1792 Output Total 330 / 330 500 / 500 Balance 1920 / 1920 1292 / 1292 Weight 73.8 kg Intake: IV 1792 / 1792 NS Inj 1,000 ML @ 100 mls/hr IV 1792 / 1792 .CONT .Q10H [facility] Rx#:[id number] Oral 250 / 250 Other 1999 Output: Urine 330 / 330 500 / 500 Other: # Voids 1 2 Date of Last Bowel Movement 06/05/18 06/05/18 Weight On Admission 73.8 kg Narrative: Bilateral upper extremity splints intact, freely able to move distal digits, very mild swelling appreciated distally, splints are not removed, pain is worst in left than right, neurovascularly intact Slight pain with inspiration on the right side of his chest No other muscular skeletal injuries identified <Dari Mccoy "Marilyn" - Last Filed: 06/06/18 09:08> Vital signs: Vital Signs 06/05/18 14:00 06/05/18 14:30 06/05/18 15:10 Temperature 98.5 F Pulse Rate 81 91 H Respiratory Rate 20 28 H 18 Blood Pressure 143/67 H 158/71 H Pulse Oximetry 99 96 06/05/18 17:21 06/05/18 20:00 06/06/18 00:00 Temperature 97.6 F 98 F 97.9 F Pulse Rate 76 79 70 Respiratory Rate 14 18 18 Blood Pressure 138/66 122/55 L 120/58 L Pulse Oximetry 95 97 96 06/06/18 04:00 06/06/18 08:00 06/06/18 12:00 Temperature 97.9 F 97.5 F L 97.8 F Pulse Rate 86 69 75 Respiratory Rate 20 18 20 Blood Pressure 112/61 134/65 136/64 Pulse Oximetry 96 95 96 Intake & Output 06/05/18 06/06/18 06/06/18 18:59 06:59 18:59 Intake Total 2250 / 2250 1792 / 1792 Output Total 330 / 330 500 / 500 Balance 1920 / 1920 1292 / 1292 Weight 73.8 kg Intake: IV 1792 / 1792 NS Inj 1,000 ML @ 100 mls/hr IV 1792 / 1792 .CONT .Q10H [facility] Rx#:[id number] Oral 250 / 250 Other 1999 / 1999 Output: Urine 330 / 330 500 / 500 Other: # Voids 1 2 Date of Last Bowel Movement 06/05/18 06/05/18 06/05/18 Weight On Admission 73.8 kg <Vinnie Singh - Last Filed: 06/06/18 13:34> Results - Labs Result Diagrams: 06/05/18 11:15 06/05/18 11:15 Labs: Laboratory Results - last 24 hr 06/05/18 06/05/18 06/05/18 11:15 11:15 11:15 WBC 7.4 RBC 6.72 H Hgb 13.1 POC Hgb (Calc) 13.9 Hct 40.1 POC Hct 41.0 MCV 59.8 L MCH 19.5 L MCHC 32.6 RDW 16.1 Plt Count 218 MPV 8.8 Prelim Diff (Auto) Slide review pending Neut % (Auto) 70.5 H Lymph % (Auto) 21.6 [place] % (Auto) 5.6 Eos % (Auto) 1.7 Baso % (Auto) 0.6 Neut # (Auto) 5.2 Lymph # (Auto) 1.6 [place] # (Auto) 0.4 Eos # (Auto) 0.1 Baso # (Auto) 0.0 WBC Differential . Diff Scan Auto diff confirmed Differential Comment . Platelet Estimate Normal Platelet Morphology Normal Tear Drop Cells 1+ H Ovalocytes 2+ H Keratocytes Occ H PT 10.7 INR 1.1 APTT 23.9 POC Sodium 143 Sodium POC Potassium 3.7 Potassium POC Chloride 106 Chloride Carbon Dioxide Anion Gap POC BUN 17 BUN Creatinine POC Creatinine 1.0 Estimated GFR POC Glucose 166 H Random Glucose Calcium Serum Alcohol Blood Type Antibody Screen 06/05/18 06/05/18 11:15 11:15 WBC RBC Hgb POC Hgb (Calc) Hct POC Hct MCV MCH MCHC RDW Plt Count MPV Prelim Diff (Auto) Neut % (Auto) Lymph % (Auto) [place] % (Auto) Eos % (Auto) Baso % (Auto) Neut # (Auto) Lymph # (Auto) [place] # (Auto) Eos # (Auto) Baso # (Auto) WBC Differential Diff Scan Differential Comment Platelet Estimate Platelet Morphology Tear Drop Cells Ovalocytes Keratocytes PT INR APTT POC Sodium Sodium 144 POC Potassium Potassium 3.8 POC Chloride Chloride 111 H Carbon Dioxide 25.7 Anion Gap 7 POC BUN BUN 18 Creatinine 1.17 POC Creatinine Estimated GFR 54 L POC Glucose Random Glucose 164 H Calcium 8.7 Serum Alcohol Less than 3 Blood Type A Positive Antibody Screen Negative - Diagnostic results Imaging: Impressions Elbow X-Ray 06/05/18 00:00 CONCLUSION: 1. Posteriorly displaced radial head with a comminuted fracture. 2. Abnormal widening of the joint space between the ulna and trochlea. Elbow X-Ray 06/05/18 00:00 CONCLUSION: Displaced radial head fracture. Humerus X-Ray 06/05/18 00:00 CONCLUSION: Possible fracture of the right radial head. Suggest dedicated views of the right elbow when patient condition permits. Humerus is intact without fracture. Humerus X-Ray 06/05/18 00:00 CONCLUSION: Fracture dislocation at the elbow joint with a fracture through the radial head. Associated soft tissue swelling is present. The left humerus is intact. Radius/Ulna X-Ray 06/05/18 00:00 CONCLUSION: Questionable fracture involving the radial head. Suggest multiple dedicated views of the elbow for further evaluation. Radius/Ulna X-Ray 06/05/18 00:00 CONCLUSION: Complete posterior elbow dislocation and suspected fracture through the radial head. Radius/Ulna X-Ray 06/05/18 00:00 CONCLUSION: 1. Reduction of the elbow joint dislocation. 2. However, there are osseous densities projecting over the antecubital fossa which may represent displaced fracture fragments the joint space. Chest X-Ray 06/05/18 11:09 CONCLUSION: Negative AP chest from backboard for trauma. Pelvis X-Ray 06/05/18 11:09 CONCLUSION: Limited exam, negative Abdomen/Pelvis CT 06/05/18 11:14 CONCLUSION: 1. No acute injury is identified within the abdomen or pelvis. 2. Small hiatal hernia with dilated fluid-filled distal esophagus. Chest CT 06/05/18 11:14 CONCLUSION: 1. There are acute fractures of the right fourth and fifth ribs, as above. No pneumothorax is present. No other acute abnormality is identified. 2. Dilated fluid-filled esophagus likely secondary to reflux. Cervical Spine CT 06/05/18 11:15 CONCLUSION: No acute cervical spine abnormality is identified. There is multilevel degenerative disc disease. Face CT 06/05/18 11:15 CONCLUSION: 1. No maxillofacial fracture is identified. 2. There is right frontal scalp and right periorbital soft tissue swelling. Head CT 06/05/18 11:15 CONCLUSION: 1. Right frontal scalp and right periorbital soft tissue swelling. There is associated subcutaneous air suggesting laceration or open wound. 2. The skull fracture or acute intracranial abnormality is identified. . Chest X-Ray 06/06/18 00:00 CONCLUSION: Mild bibasilar parenchymal opacities <Dari Mccoy" - Last Filed: 06/06/18 09:08> - Labs Result Diagrams: 06/06/18 08:15 06/06/18 08:15 Labs: Laboratory Results - last 24 hr 06/06/18 06/06/18 08:15 08:15 WBC 6.6 RBC 5.95 H Hgb 11.5 L Hct 36.6 L MCV 61.5 L MCH 19.3 L MCHC 31.3 L RDW 16.4 Plt Count 154 MPV 9.3 Prelim Diff (Auto) Slide review pending Neut % (Auto) 64.5 Lymph % (Auto) 20.9 [place] % (Auto) 10.2 H Eos % (Auto) 3.8 Baso % (Auto) 0.6 Neut # (Auto) 4.2 Lymph # (Auto) 1.4 [place] # (Auto) 0.7 Eos # (Auto) 0.3 Baso # (Auto) 0.0 WBC Differential . Diff Scan Auto diff confirmed Differential Comment . Platelet Estimate Normal Platelet Morphology Enlarged H Dimorphic RBCs Present H Ovalocytes 1+ H Sodium 142 Potassium 4.1 Chloride 112 H Carbon Dioxide 22.9 Anion Gap 7 BUN 10 Creatinine 0.71 Estimated GFR Greater than 89 Random Glucose 92 Calcium 7.8 L D - Diagnostic results Imaging: Impressions Elbow X-Ray 06/05/18 00:00 CONCLUSION: 1. Posteriorly displaced radial head with a comminuted fracture. 2. Abnormal widening of the joint space between the ulna and trochlea. Elbow X-Ray 06/05/18 00:00 CONCLUSION: Displaced radial head fracture. Chest X-Ray 06/06/18 00:00 CONCLUSION: Mild bibasilar parenchymal opacities <Vinnie Singh K - Last Filed: 06/06/18 13:34> Assessment and Plan - Assessment and Plan Further elbow x-rays were reviewed, x-rays do show bilateral radial head fractures. Unable to identify if the fracture is extruding into joint spaces. Bilateral CT scans will be ordered. After review we will determine if patient is a surgical candidate or not. Okay to feed patient at this time. N.p.o. after midnight. Possible surgical management either tomorrow with Dr. Singh or Friday with Dr. Miles after review of images. Keep patient in bilateral splints, nonweightbearing bilateral upper extremities. Ice to affected areas. Right 4/5th rib fractures non operative. Ortho will follow. Written by Dari Mccoy (Ashley), acting as scribe for Dr. Vinnie Singh on June 06, 2018 at 0914. <Dari Mccoy" - Last Filed: 06/06/18 09:08> - Assessment and Plan The exam, history and medical decision making described in the above note were completed with the assistance of the mid-level provider. I reviewed and agree with the findings presented. Attest that I had a [id number] encounter with the patient on the same day and personally performed and documented my assessment and findings in the medical record <Vinnie Singh - Last Filed: 06/06/18 13:34>
[2018-06-06 10:16] LABS: Baso % (Auto) 0.6 % (0.0-2.0); Eos # (Auto) 0.3 th/mm3 (0.0-0.4); Eos % (Auto) 3.8 % (0.0-4.0); Hematocrit 36.6 % (39.0-51.0); Hemoglobin 11.5 gm/dL (13.0-17.0); Lymph # (Auto) 1.4 th/mm3 (1.0-4.8); Lymph % (Auto) 20.9 % (9.0-44.0); Mean Corpuscular HGB Conc 31.3 % (32.0-36.0); Mean Corpuscular Hemoglobin 19.3 pg (27.0-34.0); Mean Corpuscular Volume 61.5 fL (80.0-100.0); Mean Platelet Volume 9.3 fL (7.0-11.0); Mono # (Auto) 0.7 th/mm3 (0.0-0.9); Mono % (Auto) 10.2 % (0.0-8.0); Neut # (Auto) 4.2 th/mm3 (1.8-7.7); Neut % (Auto) 64.5 % (16.0-70.0); Platelet Count 154 th/mm3 (150-450); Red Blood Count 5.95 mil/mm3 (4.50-5.90); Red Cell Distribution Width 16.4 % (11.6-17.2); White Blood Count 6.6 th/mm3 (4.0-11.0)
[2018-06-06 11:00] LABS: Anion Gap 7 meq/L (5-15); Blood Urea Nitrogen 10 mg/dL (7-18); Calcium 7.8 mg/dL (8.5-10.1); Carbon Dioxide 22.9 meq/L (21.0-32.0); Chloride 112 meq/L (98-107); Glomerular Filtration Rate Greater Than 89 mL/min (>89); Glucose,Random 92 mg/dL (74-106); Potassium 4.1 meq/L (3.5-5.1); Sodium 142 meq/L (136-145)
[2018-06-06 11:07] LABS: Dimorphic RBC Present; Ovalocytes 1+; Platelet Estimate Normal (Normal)
[2018-06-06] MEDS: Ketorolac Inj 30 MG/ML (IVP) Vial IV.PUSH SCH ×2 (13:23→20:25)
[2018-06-06] MEDS: Enoxaparin Inj 40 MG/0.4 ML Syringe SQ SCH (15:51)
--- NOTE | 2018-06-06 16:26 | P.PN ---
Subjective Interval history: Reports generalized pain but mostly in BUE's CT elbows today per Ortho Physical Exam Vital signs: Vital Signs 06/05/18 17:21 06/05/18 20:00 06/06/18 00:00 Temperature 97.6 F 98 F 97.9 F Pulse Rate 76 79 70 Respiratory Rate 14 18 18 Blood Pressure 138/66 122/55 L 120/58 L Pulse Oximetry 95 97 96 06/06/18 04:00 06/06/18 08:00 06/06/18 12:00 Temperature 97.9 F 97.5 F L 97.8 F Pulse Rate 86 69 75 Respiratory Rate 20 18 20 Blood Pressure 112/61 134/65 136/64 Pulse Oximetry 96 95 96 Intake & Output 06/05/18 06/06/18 06/06/18 18:59 06:59 18:59 Intake Total 2250 / 2250 1792 / 1792 Output Total 330 / 330 500 / 500 Balance 1920 / 1920 1292 / 1292 Weight 73.8 kg Intake: IV 1792 / 1792 NS Inj 1,000 ML @ 100 mls/hr IV 1792 / 1792 .CONT .Q10H [facility] Rx#:[id number] Oral 250 / 250 Other 1999 Output: Urine 330 / 330 500 / 500 Other: # Voids 1 2 Date of Last Bowel Movement 06/05/18 06/05/18 06/05/18 Weight On Admission 73.8 kg Narrative: GENERAL: 83-year-old well-nourished, well developed male lying in bed. SKIN: Warm and dry. RIGHT periorbital edema and ecchymosis noted. CARDIOVASCULAR: Regular rate and rhythm. RESPIRATORY: No accessory muscle use. Lungs clear and diminished to auscultation bilaterally. GASTROINTESTINAL: Abdomen soft, non-tender, nondistended. + BS. MUSCULOSKELETAL: Extremities without cyanosis, or edema. BUE soft splints in place. MAEW, + perfused NEUROLOGICAL: Awake and alert. Normal speech. Results - Labs CBC & Chem 7: 06/06/18 08:15 06/06/18 08:15 Laboratory Results - last 24 hr 06/06/18 06/06/18 08:15 08:15 WBC 6.6 RBC 5.95 H Hgb 11.5 L Hct 36.6 L MCV 61.5 L MCH 19.3 L MCHC 31.3 L RDW 16.4 Plt Count 154 MPV 9.3 Prelim Diff (Auto) Slide review pending Neut % (Auto) 64.5 Lymph % (Auto) 20.9 [place] % (Auto) 10.2 H Eos % (Auto) 3.8 Baso % (Auto) 0.6 Neut # (Auto) 4.2 Lymph # (Auto) 1.4 [place] # (Auto) 0.7 Eos # (Auto) 0.3 Baso # (Auto) 0.0 WBC Differential . Diff Scan Auto diff confirmed Differential Comment . Platelet Estimate Normal Platelet Morphology Enlarged H Dimorphic RBCs Present H Ovalocytes 1+ H Sodium 142 Potassium 4.1 Chloride 112 H Carbon Dioxide 22.9 Anion Gap 7 BUN 10 Creatinine 0.71 Estimated GFR Greater than 89 Random Glucose 92 Calcium 7.8 L D - Imaging Impressions Chest X-Ray 06/06/18 00:00 CONCLUSION: Mild bibasilar parenchymal opacities Assessment and Plan - Plan TLINGIT & HAIDA: Fell from a roof approximately 15ft at a construction site. + LOC. INJURIES: Concussion RIGHT rib fxs (4, 5) RIGHT pulmonary contusion BILAT radial head fx LEFT elbow dislocation PMHx: GERD Concussion Supportive care Avoid second head injury Postconcussive education RIGHT rib fxs, RIGHT pulmonary contusion Supportive care Pulmonary toileting CXR today shows mild bibasilar opacities Pain control Bowel regimen OOB-PT and OT ordered BILAT radial head fx, LEFT elbow dislocation Orthopedics consulted 06/05: LEFT elbow reduced CT bilat elbows today Pain control Plan of care discussed with patient at bedside. Collaborating Trauma MD agrees with plan. Case management consulted to assist with discharge planning.
--- NOTE | 2018-06-06 20:45 | CT ---
EXAM DATE: 06/06/2018 8:23 PM EDT AGE/SEX: 38 years / Male INDICATIONS: Abnormal xray. CLINICAL DATA: This is the patient's initial encounter. Patient reports that signs and symptoms have been present for 2 days and indicates a pain score of 8/10. MEDICAL/SURGICAL HISTORY: None. None. RADIATION DOSE: 19.07 CTDI (mGy) COMPARISON: [facility], ELBOW COMPLETE LEFT 4V, 06/05/2018. . TECHNIQUE: Multiple contiguous axial images were acquired using a multi-row detector CT scanner. Mu ltiplanar reconstruction was performed in the sagittal and coronal planes. Using automated exposure control and adjustment of the mA and/or kV according to patient size, radiation dose was kept as low as reasonably achievable to obtain optimal diagnostic quality images. DICOM format image data is tarik ilable electronically for review and comparison. FINDINGS: There is evidence of a recent posterior dislocation of the left elbow. An extremely comminuted fracturing involves the radial head. There is an approximately 6 x 10 by 14 m m inferiorly displaced fracture fragment, series 801 image 25 and series 800 image 34. Otherwise, num erous small comminuted fracture fragments are seen and there is up to 4 mm of depression. There is a 1 cm fracture fragment off of the coronoid process that is superiorly displaced. There is mild posterior subluxation at the time of imaging but no symone dislocation. Distal humerus intact. Large lipohemarthrosis. CONCLUSION: 1. Recent posterior elbow dislocation. Mild posterior subluxation at the time of imaging. 2. Extremely comminuted fracturing of the radial head and the main fracture fragment is distally dis placed by approximately 11 mm. 3. Comminuted fracture of the coronoid process with the main fracture fragment displaced proximally by approximately 1 cm. Electronically signed by: Rubin Silverman MD 06/06/2018 8:44 PM EDT
--- NOTE | 2018-06-06 21:07 | CT ---
EXAM DATE: 06/06/2018 8:24 PM EDT AGE/SEX: 38 years / Male INDICATIONS: abnormal xray. CLINICAL DATA: This is the patient's initial encounter. Patient reports that signs and symptoms have been present for 1 day and indicates a pain score of 8/10. MEDICAL/SURGICAL HISTORY: None. None. RADIATION DOSE: 19.07 CTDI (mGy) COMPARISON: [facility], ELBOW COMPLETE RIGHT 4V, 06/05/2018. . TECHNIQUE: Multiple contiguous axial images were acquired using a multi-row detector CT scanner. Mu ltiplanar reconstruction was performed in the sagittal and coronal planes. Using automated exposure control and adjustment of the mA and/or kV according to patient size, radiation dose was kept as low as reasonably achievable to obtain optimal diagnostic quality images. DICOM format image data is tarik ilable electronically for review and comparison. FINDINGS: Small, nondisplaced fracture seen of the tip of the coronoid of the proximal ulna. There is acute comminuted fracturing of the radial head, basically into posterior and anter ior halves and with the fragments posteriorly and anteriorly displaced, respectively. The posterior f ragment is also posteriorly rotated so that the articular surface is pointing posteriorly. A few tiny comminuted fracture fragments are seen along the lateral margin of the radiocapitellar joint. Distal humerus appears intact.. There is an anteriorly displaced fracture fragment off of the CONCLUSION: 1. Comminuted and displaced fracturing of the radial head as described. 2. Nondisplaced fracture of the coronoid process of the ulna. Electronically signed by: Rubin Silverman MD 06/06/2018 9:06 PM EDT
[2018-06-07] MEDS: Ketorolac Inj 30 MG/ML (IVP) Vial IV.PUSH SCH ×5 (01:37→20:16)
[2018-06-07] MEDS: Methocarbamol 500 MG Tablet PO SCH ×4 (05:19→22:03)
[2018-06-07] MEDS: Senna/Docusate Sodium 8.6/50 MG Tablet PO SCH ×2 (08:06→20:17)
[2018-06-07] MEDS: Famotidine 20 MG Tablet PO SCH ×2 (08:06→20:17)
[2018-06-07] MEDS: Lidocaine 5% Patch T-DERMAL SCH (08:07)
--- NOTE | 2018-06-07 09:16 | P.PNOP ---
Subjective Interval history: The patient is awake and alert. He complains of bilateral elbow pain. He has no other specific complaint. The CT scans of both elbows were completed and available for review. Physical Exam Vital signs: Vital Signs 06/06/18 12:00 06/06/18 16:00 06/06/18 20:22 Temperature 97.8 F 98.3 F 98.9 F Pulse Rate 75 71 81 Respiratory Rate 20 18 18 Blood Pressure 136/64 148/65 H 125/58 L Pulse Oximetry 96 96 96 06/06/18 20:55 06/06/18 23:38 06/06/18 23:40 Temperature 97.9 F Pulse Rate 75 Respiratory Rate 18 18 18 Blood Pressure 134/61 Pulse Oximetry 97 06/07/18 01:12 EDT 06/07/18 05:42 06/07/18 08:00 Temperature 98.1 F Pulse Rate 75 Respiratory Rate 18 18 18 Blood Pressure 145/72 H Pulse Oximetry 97 Intake & Output 06/06/18 06/07/18 06/07/18 19:59 06:59 18:59 Intake Total Balance Intake: Oral Other: # Voids Date of Last Bowel Movement # Bowel Movements Narrative: The patient has bilateral long-arm splints in place. He has satisfactory mobility of the fingers with good capillary refill and sensation. Results - Labs CBC & Chem 7: 06/06/18 08:15 06/06/18 08:15 Laboratory Results - last 24 hr 06/06/18 06/06/18 08:15 08:15 WBC 6.6 RBC 5.95 H Hgb 11.5 L Hct 36.6 L MCV 61.5 L MCH 19.3 L MCHC 31.3 L RDW 16.4 Plt Count 154 MPV 9.3 Prelim Diff (Auto) Slide review pending Neut % (Auto) 64.5 Lymph % (Auto) 20.9 [place] % (Auto) 10.2 H Eos % (Auto) 3.8 Baso % (Auto) 0.6 Neut # (Auto) 4.2 Lymph # (Auto) 1.4 [place] # (Auto) 0.7 Eos # (Auto) 0.3 Baso # (Auto) 0.0 WBC Differential . Diff Scan Auto diff confirmed Differential Comment . Platelet Estimate Normal Platelet Morphology Enlarged H Dimorphic RBCs Present H Ovalocytes 1+ H Sodium 142 Potassium 4.1 Chloride 112 H Carbon Dioxide 22.9 Anion Gap 7 BUN 10 Creatinine 0.71 Estimated GFR Greater than 89 Random Glucose 92 Calcium 7.8 L D - Imaging Impressions Elbow CT 06/06/18 00:00 CONCLUSION: 1. Recent posterior elbow dislocation. Mild posterior subluxation at the time of imaging. 2. Extremely comminuted fracturing of the radial head and the main fracture fragment is distally displaced by approximately 11 mm. 3. Comminuted fracture of the coronoid process with the main fracture fragment displaced proximally by approximately [address] 06/06/18 00:00 CONCLUSION: 1. Comminuted and displaced fracturing of the radial head as described. 2. Nondisplaced fracture of the coronoid process of the ulna. Assessment and Plan - Problem List (1) Fracture, radius, proximal Code(s): S52.109A - Unspecified fracture of upper end of unspecified radius, initial encounter for closed fracture Status: Acute Qualifiers: Encounter type: initial encounter Fracture type: closed Laterality: unspecified laterality (2) Closed fracture dislocation of elbow Code(s): S42.409A - Unspecified fracture of lower end of unspecified humerus, initial encounter for closed fracture Status: Acute Qualifiers: Encounter type: initial encounter Laterality: left Qualified Code(s): S42.402A - Unspecified fracture of lower end of left humerus, initial encounter for closed fracture (3) Fracture of coronoid process of ulna, left, closed Code(s): S52.042A - Displaced fracture of coronoid process of left ulna, initial encounter for closed fracture Status: Acute Qualifiers: Encounter type: initial encounter Fracture alignment: displaced Qualified Code(s): S52.042A - Displaced fracture of coronoid process of left ulna, initial encounter for closed fracture - Assessment and Plan The findings were discussed. The x-ray and CT scan findings were reviewed. The patient has significant injuries to both elbows. He has the "terrible triad " on the left. Recommendations are for surgical management. Given the complexity of it, he will be referred to Dr. Miles for definitive management. The patient acknowledges full understanding and agrees to the plan. He will be n.p.o. after midnight.
[2018-06-07 10:49] LABS: Baso % (Auto) 0.4 % (0.0-2.0); Eos # (Auto) 0.2 th/mm3 (0.0-0.4); Eos % (Auto) 3.1 % (0.0-4.0); Hematocrit 37.8 % (39.0-51.0); Hemoglobin 12.4 gm/dL (13.0-17.0); Lymph # (Auto) 1.3 th/mm3 (1.0-4.8); Lymph % (Auto) 19.9 % (9.0-44.0); Mean Corpuscular HGB Conc 32.7 % (32.0-36.0); Mean Corpuscular Hemoglobin 19.6 pg (27.0-34.0); Mean Corpuscular Volume 59.9 fL (80.0-100.0); Mean Platelet Volume 8.7 fL (7.0-11.0); Mono # (Auto) 0.6 th/mm3 (0.0-0.9); Mono % (Auto) 9.1 % (0.0-8.0); Neut # (Auto) 4.4 th/mm3 (1.8-7.7); Neut % (Auto) 67.5 % (16.0-70.0); Platelet Count 147 th/mm3 (150-450); Red Blood Count 6.31 mil/mm3 (4.50-5.90); White Blood Count 6.5 th/mm3 (4.0-11.0)
[2018-06-07 11:15] LABS: Anion Gap 5 meq/L (5-15); Blood Urea Nitrogen 12 mg/dL (7-18); Calcium 8.3 mg/dL (8.5-10.1); Carbon Dioxide 27.5 meq/L (21.0-32.0); Chloride 107 meq/L (98-107); Glomerular Filtration Rate Greater Than 89 mL/min (>89); Glucose,Random 113 mg/dL (74-106); Sodium 139 meq/L (136-145)
[2018-06-07 11:53] LABS: Dimorphic RBC Present; Ovalocytes 1+; Platelet Estimate Normal (Normal); Tear Drop Cells 1+
[2018-06-07] MEDS: HYDROmorphone PF Inj 1 MG/ML Ampul IV.PUSH PRN ×3 (13:34→23:44)
[2018-06-07] MEDS: Enoxaparin Inj 40 MG/0.4 ML Syringe SQ SCH (16:00)
--- NOTE | 2018-06-07 16:44 | P.PN ---
Subjective Interval history: OOB in chair Pain better controlled with Fentanyl patch OR tomorrow with Ortho Physical Exam Vital signs: Vital Signs 06/06/18 20:22 06/06/18 20:55 06/06/18 23:38 Temperature 98.9 F Pulse Rate 81 Respiratory Rate 18 18 18 Blood Pressure 125/58 L Pulse Oximetry 96 06/06/18 23:40 06/07/18 01:12 EDT 06/07/18 05:42 Temperature 97.9 F Pulse Rate 75 Respiratory Rate 18 18 18 Blood Pressure 134/61 Pulse Oximetry 97 06/07/18 08:00 06/07/18 12:00 Temperature 98.1 F 98.4 F Pulse Rate 75 70 Respiratory Rate 18 18 Blood Pressure 145/72 H 146/68 H Pulse Oximetry 97 97 Intake & Output 06/06/18 06/07/18 06/07/18 19:59 06:59 18:59 Intake Total Balance Intake: Oral Other: # Voids Date of Last Bowel Movement 06/05/18 # Bowel Movements Narrative: GENERAL: 38-year-old well-nourished, well developed male OOB in chair. SKIN: Warm and dry. RIGHT periorbital edema and ecchymosis noted. CARDIOVASCULAR: Regular rate and rhythm. RESPIRATORY: No accessory muscle use. Lungs clear and diminished to auscultation bilaterally. GASTROINTESTINAL: Abdomen soft, non-tender, nondistended. + BS. MUSCULOSKELETAL: Extremities without cyanosis, or edema. BUE soft splints in place. MAEW, + perfused NEUROLOGICAL: Awake and alert. Normal speech. Results - Labs CBC & Chem 7: 06/07/18 10:39 06/07/18 10:39 Laboratory Results - last 24 hr 06/07/18 06/07/18 10:39 10:39 WBC 6.5 RBC 6.31 H Hgb 12.4 L Hct 37.8 L MCV 59.9 L MCH 19.6 L MCHC 32.7 RDW 16.0 Plt Count 147 L MPV 8.7 Prelim Diff (Auto) Slide review pending Neut % (Auto) 67.5 Lymph % (Auto) 19.9 [place] % (Auto) 9.1 H Eos % (Auto) 3.1 Baso % (Auto) 0.4 Neut # (Auto) 4.4 Lymph # (Auto) 1.3 [place] # (Auto) 0.6 Eos # (Auto) 0.2 Baso # (Auto) 0.0 WBC Differential . Diff Scan Auto diff confirmed Differential Comment . Platelet Estimate Normal Platelet Morphology Enlarged H Dimorphic RBCs Present H Tear Drop Cells 1+ H Ovalocytes 1+ H Keratocytes Occ H Sodium 139 Potassium 4.0 Chloride 107 Carbon Dioxide 27.5 Anion Gap 5 BUN 12 Creatinine 0.76 Estimated GFR Greater than 89 Random Glucose 113 H Calcium 8.3 L - Imaging Impressions Elbow CT 06/06/18 00:00 CONCLUSION: 1. Recent posterior elbow dislocation. Mild posterior subluxation at the time of imaging. 2. Extremely comminuted fracturing of the radial head and the main fracture fragment is distally displaced by approximately 11 mm. 3. Comminuted fracture of the coronoid process with the main fracture fragment displaced proximally by approximately [address] 06/06/18 00:00 CONCLUSION: 1. Comminuted and displaced fracturing of the radial head as described. 2. Nondisplaced fracture of the coronoid process of the ulna. Assessment and Plan - Plan [place]: Fell from a roof approximately 15ft at a construction site. + LOC. INJURIES: Concussion RIGHT rib fxs (4, 5) RIGHT pulmonary contusion BILAT radial head fx LEFT elbow dislocation PMHx: GERD Concussion Supportive care Avoid second head injury Postconcussive education RIGHT rib fxs, RIGHT pulmonary contusion Supportive care Pulmonary toileting CXR shows mild bibasilar opacities Pain control Bowel regimen OOB-PT and OT ordered BILAT radial head fx, LEFT elbow dislocation Orthopedics consulted 06/05: LEFT elbow reduced Ortho planning to take patient to OR for bilat elbow repair tomorrow Pain control Bowel regimen OOB- PT and OT ordered NWB BUE Plan of care discussed with patient at bedside. Collaborating Trauma MD agrees with plan. Case management consulted to assist with discharge planning.
[2018-06-08] MEDS: Ketorolac Inj 30 MG/ML (IVP) Vial IV.PUSH SCH ×4 (01:56→21:26)
[2018-06-08] MEDS: Methocarbamol 500 MG Tablet PO SCH ×4 (04:12→21:25)
[2018-06-08] MEDS ORDERED: Sodium Chloride 0.9% 2 ML Flush PRN IV.FLUSH (05:54)
[2018-06-08] MEDS ORDERED: Sodium Chlor 0.9% Inj 500 ML IV.CONT ONE (06:00)
[2018-06-08] MEDS ORDERED: Chlorhexidine Gluconate 2% 1 Pack (2 Cloths) TOPICAL ONE (06:00)
--- NOTE | 2018-06-08 06:41 | P.PNOP ---
Subjective Interval history: s/p fall from roof bilateral elbow pain. left worse than right. Physical Exam Vital signs: Vital Signs 06/07/18 08:00 06/07/18 12:00 06/07/18 16:00 Temperature 98.1 F 98.4 F 98.0 F Pulse Rate 75 70 80 Respiratory Rate 18 18 16 Blood Pressure 145/72 H 146/68 H 146/67 H Pulse Oximetry 97 97 95 06/07/18 20:00 06/07/18 20:46 06/07/18 23:07 Temperature 99.1 F Pulse Rate 87 Respiratory Rate 17 18 18 Blood Pressure 154/89 H Pulse Oximetry 95 06/08/18 00:00 06/08/18 00:26 06/08/18 02:26 Temperature 98.7 F Pulse Rate 72 Respiratory Rate 16 18 18 Blood Pressure 133/62 Pulse Oximetry 97 06/08/18 04:00 06/08/18 04:42 Temperature 98.9 F Pulse Rate 71 Respiratory Rate 17 18 Blood Pressure 147/63 H Pulse Oximetry 96 Intake & Output 06/07/18 06/07/18 06/08/18 06:59 18:59 06:59 Intake Total 600 / 600 Balance 600 / 600 Weight 77 kg Intake: Oral 600 / 600 Other: # Voids 3 5 Date of Last Bowel Movement 06/05/18 06/05/18 # Bowel Movements Narrative: LUE: +long arm splint. intact. NVI RUE: +long arm splint. intact. NVI Results - Labs CBC & Chem 7: 06/07/18 10:39 06/07/18 10:39 Laboratory Results - last 24 hr 06/07/18 06/07/18 10:39 10:39 WBC 6.5 RBC 6.31 H Hgb 12.4 L Hct 37.8 L MCV 59.9 L MCH 19.6 L MCHC 32.7 RDW 16.0 Plt Count 147 L MPV 8.7 Prelim Diff (Auto) Slide review pending Neut % (Auto) 67.5 Lymph % (Auto) 19.9 [place] % (Auto) 9.1 H Eos % (Auto) 3.1 Baso % (Auto) 0.4 Neut # (Auto) 4.4 Lymph # (Auto) 1.3 [place] # (Auto) 0.6 Eos # (Auto) 0.2 Baso # (Auto) 0.0 WBC Differential . Diff Scan Auto diff confirmed Differential Comment . Platelet Estimate Normal Platelet Morphology Enlarged H Dimorphic RBCs Present H Tear Drop Cells 1+ H Ovalocytes 1+ H Keratocytes Occ H Sodium 139 Potassium 4.0 Chloride 107 Carbon Dioxide 27.5 Anion Gap 5 BUN 12 Creatinine 0.76 Estimated GFR Greater than 89 Random Glucose 113 H Calcium 8.3 L Assessment and Plan - Problem List (1) Fracture, radius, proximal Code(s): S52.109A - Unspecified fracture of upper end of unspecified radius, initial encounter for closed fracture Status: Acute Qualifiers: Encounter type: initial encounter Fracture type: closed Laterality: unspecified laterality (2) Closed fracture dislocation of elbow Code(s): S42.409A - Unspecified fracture of lower end of unspecified humerus, initial encounter for closed fracture Status: Acute Qualifiers: Encounter type: initial encounter Laterality: left Qualified Code(s): S42.402A - Unspecified fracture of lower end of left humerus, initial encounter for closed fracture (3) Fracture of coronoid process of ulna, left, closed Code(s): S52.042A - Displaced fracture of coronoid process of left ulna, initial encounter for closed fracture Status: Acute Qualifiers: Encounter type: initial encounter Fracture alignment: displaced Qualified Code(s): S52.042A - Displaced fracture of coronoid process of left ulna, initial encounter for closed fracture - Assessment and Plan 1) Right Radial Head Fx 2) Left Elbow dislocation with radial head fx s/p closed reduction -discussed with patient -right elbow will need surgical intervention. will need ORIF vs radial head replacement. planning on proceeding today -Left elbow will hopefully not need any intervention if stable and maintains reduction. will examine under anesthesia today. -if left elbow unstable, chance for future surgery for ligament reconstruction. however, if stable, will plan for nonop -sign consents on chart -surgery today with [facility]
[2018-06-08] MEDS ORDERED: fentaNYL Citrate Inj 250 MCG/5 ML Ampul ONE (07:10)
[2018-06-08] MEDS ORDERED: ceFAZolin 2 GM Premix Inj 2 GM/50 ML PIGGYBACK IV.SIG ONE (08:54)
[2018-06-08] MEDS ORDERED: Sodium Chloride 0.9% 2 ML Flush BID IV.FLUSH SCH (09:00)
[2018-06-08] MEDS ORDERED: Post-op Orders (for Pharmacy) OTHER STA (10:56)
--- NOTE | 2018-06-08 11:07 | P.OP ---
- Preoperative Diagnosis (1) Fracture of radial head, right, closed (2) Closed fracture dislocation of elbow (3) Fracture of coronoid process of ulna, left, closed Date of procedure: 06/08/18 Procedure: Left elbow manipulation under anesthesia with fluoroscopy, open treatment of right radial head fracture with arthroplasty replacement Anesthesia: POOJA Surgeon: Azam Olmstead MD [employer] Technician: TANYA Carter PA-C The surgical procedure was assisted by my physician outreach assistant. My P.A. presence was necessary throughout this case for the manipulation and positioning of the surgical extremity. My P.A. was assisting me throughout the duration of this procedure. The skill set of a physician outreach assistant was medically necessary to complete this procedure. During the surgical case the cardiovascular surgical tech was working at the back table and the physician outreach assistant was directly assisting me. Operation and Findings: Implants used: Skeletal dynamics size 10 stem, size 24 head Patient was seen and evaluated preoperatively. I discussed the risk and benefits of surgery in depth with patient. All questions were answered. Operative site was marked. Patient was brought the operating room, given IV sedation and general anesthesia. IV antibiotic's were administered prior to incision. Timeout procedure was performed. Procedure began with examination of the left elbow under anesthesia. Fluoroscopy was used to visualize the joint. Patient had a small radial head fracture with a small coronoid process fracture. The elbow was placed through full range of motion from 0-135 degrees. The elbow was stable. There was no mechanical block of the range of motion. Decision was made to treat these fractures nonoperatively. Patient was placed into a well molded clamshell splint. Next, the right arm was prepped with alcohol followed Hibiclens and draped in usual sterile fashion. Procedure began with a 3 inch incision over the lateral aspect of the elbow. Subcutaneous tissue was was dissected with Bovie. A standard lateral approach to the radial head was utilized. Care was taken to avoid injury to the posterior interosseous nerve. Joint capsule was incised. The radial head was visualized. The radial head was comminuted into multiple fragments. At this point the radial head fragments were removed. Decision was made to proceed with radial head replacement because of the combination of the articular surface. The radial head fragments were measured. A skeletal dynamics radial head replacement system was utilized. The proximal radius was exposed. Soft tissue was protected. Oscillating saw was used to level of the cut of the radius. The canal was sequentially broached until there was a good fit. A trial stem was placed. Next a trial head was placed. Fluoroscopy confirmed excellent fit of the prosthesis with concentrically reduced elbow joint. Trial components were removed. The stem was now opened. The stem was impacted into proximal radius. The head was now placed onto the stem. Using the alignment guide the radial head was aligned with the anatomic axis of rotation of the forearm. The set screw was tightened appropriately. Patient had full range of motion of elbow with no resistance. Fluoroscopy confirmed appropriate placement of hardware. Incision was thoroughly irrigated. Fascia was closed with #1 Vicryl, subcutaneous tissues closed with 3 -0 Vicryl, and skin was closed with link. Patient was placed into a sling. Patient was awakened and transferred to recovery room in stable condition. Needle and sponge counts were correct.
[2018-06-08] MEDS ORDERED: *Meperidine Inj 25 MG/ML Vial PERIprocedural Use ONLY ONE (11:37)
[2018-06-08] MEDS ORDERED: *morphine SULFATE 10 MG/ML PERIprocedure ONLY ONE ×2 (11:50→12:33)
[2018-06-08] MEDS ORDERED: *HYDROmorphone PF Inj 1 MG/ML Ampul PERIprocedural Use ONLY ONE ×2 (12:04→12:17)
--- NOTE | 2018-06-08 12:04 | P.PN ---
Subjective Interval history: S/P Left elbow manipulation under anesthesia with fluoroscopy, open treatment of right radial head fracture with arthroplasty replacement Physical Exam Vital signs: Vital Signs 06/07/18 16:00 06/07/18 20:00 06/07/18 20:46 Temperature 98.0 F 99.1 F Pulse Rate 80 87 Respiratory Rate 16 17 18 Blood Pressure 146/67 H 154/89 H Pulse Oximetry 95 95 06/07/18 23:07 06/08/18 00:00 06/08/18 00:26 Temperature 98.7 F Pulse Rate 72 Respiratory Rate 18 16 18 Blood Pressure 133/62 Pulse Oximetry 97 06/08/18 02:26 06/08/18 04:00 06/08/18 04:42 Temperature 98.9 F Pulse Rate 71 Respiratory Rate 18 17 18 Blood Pressure 147/63 H Pulse Oximetry 96 06/08/18 07:45 06/08/18 11:25 06/08/18 11:30 Temperature 98.1 F 97 F L Pulse Rate 71 71 68 Respiratory Rate 18 18 12 Blood Pressure 142/73 H 126/59 L 138/63 Pulse Oximetry 96 96 96 06/08/18 11:45 Temperature Pulse Rate 66 Respiratory Rate 13 Blood Pressure 152/67 H Pulse Oximetry 100 Intake & Output 06/07/18 06/08/18 06/08/18 18:59 06:59 18:59 Intake Total 600 / 600 850 / 850 Output Total 50 / 50 Balance 600 / 600 800 / 800 Weight 77 kg Intake: IV 850 / 850 LR 1000 mL Inj 1,000 ML @ 30 800 / 800 mls/hr IV.CONT .Q24H ONE Rx#: [id number] Ancef 2 GM Premix Inj 2 gm In 50 / 50 50 ml @ 0 mls/hr IV.SIG .STK- MED ONE Rx#:[id number] Oral 600 / 600 Output: Estimated Blood Loss 50 / 50 Other: # Voids 3 5 Date of Last Bowel Movement 06/05/18 06/05/18 Results - Labs CBC & Chem 7: 06/07/18 10:39 06/07/18 10:39 Assessment and Plan - Plan [place]: Fell from a roof approximately 15ft at a construction site. + LOC. INJURIES: Concussion RIGHT rib fxs (4, 5) RIGHT pulmonary contusion BILAT radial head fx LEFT elbow dislocation PMHx: GERD Concussion Supportive care Avoid second head injury Postconcussive education RIGHT rib fxs, RIGHT pulmonary contusion Supportive care Pulmonary toileting CXR shows mild bibasilar opacities Pain control Bowel regimen OOB-PT and OT ordered BILAT radial head fx, LEFT elbow dislocation Orthopedics consulted 06/05: LEFT elbow reduced S/P Left elbow manipulation under anesthesia with fluoroscopy, open treatment of right radial head fracture with arthroplasty replacement Pain control Bowel regimen OOB- PT and OT ordered NWB BUE Plan of care discussed with patient at bedside. Collaborating Trauma MD agrees with plan. Case management consulted to assist with discharge planning.
[2018-06-08] MEDS ORDERED: HYDROmorphone PF Inj 2 MG/ML Vial ONE (12:44)
[2018-06-08] MEDS ORDERED: HYDROmorphone PF Inj 2 MG/ML Vial IV.PUSH ONE (13:00)
[2018-06-08 14:18] LABS: Baso % (Auto) 0.2 % (0.0-2.0); Eos % (Auto) 0.4 % (0.0-4.0); Hematocrit 35.1 % (39.0-51.0); Hemoglobin 11.6 gm/dL (13.0-17.0); Lymph # (Auto) 0.7 th/mm3 (1.0-4.8); Lymph % (Auto) 7.3 % (9.0-44.0); Mean Corpuscular Hemoglobin 19.5 pg (27.0-34.0); Mean Corpuscular Volume 59.1 fL (80.0-100.0); Mean Platelet Volume 9.2 fL (7.0-11.0); Mono # (Auto) 0.2 th/mm3 (0.0-0.9); Mono % (Auto) 2.1 % (0.0-8.0); Neut # (Auto) 8.7 th/mm3 (1.8-7.7); Platelet Count 168 th/mm3 (150-450); Red Blood Count 5.95 mil/mm3 (4.50-5.90); Red Cell Distribution Width 15.8 % (11.6-17.2); White Blood Count 9.7 th/mm3 (4.0-11.0)
[2018-06-08 14:37] LABS: Anion Gap 8 meq/L (5-15); Blood Urea Nitrogen 16 mg/dL (7-18); Calcium 8.1 mg/dL (8.5-10.1); Carbon Dioxide 25.5 meq/L (21.0-32.0); Chloride 108 meq/L (98-107); Glomerular Filtration Rate Greater Than 89 mL/min (>89); Glucose,Random 106 mg/dL (74-106); Potassium 3.9 meq/L (3.5-5.1); Sodium 141 meq/L (136-145)
--- NOTE | 2018-06-08 14:48 | XR ---
EXAM DATE: 06/08/2018 2:33 PM EST AGE/SEX: 38 years / Male INDICATIONS: Left elbow manipulation. CLINICAL DATA: This is the patient's initial encounter. Patient reports that signs and symptoms have been present for 1 day and indicates a pain score of Nonresponsive. MEDICAL/SURGICAL HISTORY: Non-responsive. Non-responsive. COMPARISON: [facility] – [place], CT ELBOW LEFT W/O CONTRAST, 06/06/2018. . FINDINGS: 2 views of the elbow are compared to recent CT. There is anatomic congregational of the ulnohumeral join t with reduction of the mild dislocation. Comminuted fracture the radial head with small fragments remains evident. CONCLUSION: Improved alignment of the glenohumeral joint following manipulation Comminuted fracture the radial head is again noted. Electronically signed by: Mitchel Salamanca MD 06/08/2018 2:46 PM EST
[2018-06-08 14:52] LABS: Ovalocytes 2+; Platelet Estimate Normal (Normal); Platelet Morphology Normal (Normal)
--- NOTE | 2018-06-08 16:04 | XR ---
EXAM DATE: 06/08/2018 2:29 PM EST AGE/SEX: 38 years / Male INDICATIONS: Right elbow open reduction internal fixations. CLINICAL DATA: This is the patient's initial encounter. Patient reports that signs and symptoms have been present for 1 day and indicates a pain score of Nonresponsive. MEDICAL/SURGICAL HISTORY: Non-responsive. Non-responsive. COMPARISON: No prior exams available for comparison. FINDINGS: Status post placement of a prosthesis involving the radial head. There is good alignment at the elbow joint. The bony structures are grossly intact. CONCLUSION: Good position and alignment on this postoperative study. Electronically signed by: Jovan Plaza MD 06/08/2018 4:03 PM EST
[2018-06-08] MEDS: Famotidine 20 MG Tablet PO SCH ×2 (16:43→21:25)
[2018-06-08] MEDS: Lidocaine 5% Patch T-DERMAL SCH (16:43)
[2018-06-08] MEDS: Senna/Docusate Sodium 8.6/50 MG Tablet PO SCH ×2 (16:43→21:25)
[2018-06-08] MEDS: Calcium/Vitamin D 250/125 MG Tablet PO SCH ×2 (16:47→17:39)
[2018-06-08] MEDS: Enoxaparin Inj 40 MG/0.4 ML Syringe SQ SCH (16:47)
[2018-06-08] MEDS: ceFAZolin 2 GM Premix Inj 2 GM/50 ML PIGGYBACK IV.SIG SCH (17:39)
[2018-06-08] MEDS ORDERED: ceFAZolin Inj 2,000 MG in Sodium Chlor 0.9% Inj 80 ML IV.SIG SCH (18:00)
[2018-06-09] MEDS: Ketorolac Inj 30 MG/ML (IVP) Vial IV.PUSH SCH ×3 (01:51→13:18)
[2018-06-09] MEDS: ceFAZolin 2 GM Premix Inj 2 GM/50 ML PIGGYBACK IV.SIG SCH ×2 (01:52→09:00)
[2018-06-09 05:33] LABS: Anion Gap 6 meq/L (5-15); Blood Urea Nitrogen 19 mg/dL (7-18); Calcium 8.2 mg/dL (8.5-10.1); Carbon Dioxide 26.6 meq/L (21.0-32.0); Chloride 108 meq/L (98-107); Glomerular Filtration Rate Greater Than 89 mL/min (>89); Glucose,Random 128 mg/dL (74-106); Sodium 141 meq/L (136-145)
[2018-06-09] MEDS: Methocarbamol 500 MG Tablet PO SCH ×2 (05:55→13:17)
--- NOTE | 2018-06-09 07:08 | P.PNOP ---
Subjective Interval history: POD 1 s/p Right radial head replacement s/p TORSTEN left elbow doing well. out of bed on own. reports soreness but states no problems Physical Exam Vital signs: Vital Signs 06/08/18 07:45 06/08/18 11:25 06/08/18 11:30 Temperature 98.1 F 97 F L Pulse Rate 71 71 68 Respiratory Rate 18 18 12 Blood Pressure 142/73 H 126/59 L 138/63 Pulse Oximetry 96 98 96 06/08/18 11:45 06/08/18 12:00 06/08/18 12:02 Temperature Pulse Rate 66 69 Respiratory Rate 13 19 13 Blood Pressure 152/67 H 141/66 H Pulse Oximetry 100 98 06/08/18 12:15 06/08/18 12:30 06/08/18 12:35 Temperature 98.3 F Pulse Rate 69 69 Respiratory Rate 16 12 16 Blood Pressure 130/53 L 148/64 H Pulse Oximetry 100 96 06/08/18 12:45 06/08/18 13:00 06/08/18 13:30 Temperature 97.7 F Pulse Rate 82 86 76 Respiratory Rate 13 21 18 Blood Pressure 144/67 H 132/62 143/69 H Pulse Oximetry 96 98 93 L 06/08/18 16:00 06/08/18 20:00 06/09/18 00:00 Temperature 97.6 F 98.4 F 98.7 F Pulse Rate 84 76 66 Respiratory Rate 18 18 18 Blood Pressure 148/92 H 154/70 H 135/70 Pulse Oximetry 93 L 95 97 06/09/18 04:00 Temperature 98.6 F Pulse Rate 73 Respiratory Rate 18 Blood Pressure 136/61 Pulse Oximetry 98 Intake & Output 06/08/18 06/09/18 06/09/18 18:59 06:59 18:59 Intake Total 1210 / 1210 220 / 220 Output Total 50 / 50 Balance 1160 / 1160 220 / 220 Weight 80.2 kg Intake: IV 850 / 850 100 / 100 LR 1000 mL Inj 1,000 ML @ 30 800 / 800 mls/hr IV.CONT .Q24H ONE Rx#: [id number] Ancef 2 GM Premix Inj 2 gm In 50 / 50 100 / 100 50 ml @ 100 mls/hr IV.SIG Q8H [facility] Rx#:[id number] Oral 360 / 360 120 / 120 Output: Estimated Blood Loss 50 / 50 Other: # Voids 2 3 Date of Last Bowel Movement 06/05/18 Narrative: RUE: dressings clean and dry. intact. NVI. ROM of elbow 20-110deg LUE: +long arm splint. intact. NVI Results - Labs CBC & Chem 7: 06/08/18 13:46 06/09/18 04:46 Laboratory Results - last 24 hr 06/08/18 06/08/18 06/09/18 13:46 13:46 04:46 WBC 9.7 RBC 5.95 H Hgb 11.6 L Hct 35.1 L MCV 59.1 L MCH 19.5 L MCHC 33.0 RDW 15.8 Plt Count 168 MPV 9.2 Prelim Diff (Auto) Slide review pending Neut % (Auto) 90.0 H Lymph % (Auto) 7.3 L [place] % (Auto) 2.1 Eos % (Auto) 0.4 Baso % (Auto) 0.2 Neut # (Auto) 8.7 H Lymph # (Auto) 0.7 L [place] # (Auto) 0.2 Eos # (Auto) 0.0 Baso # (Auto) 0.0 WBC Differential . Diff Scan Auto diff confirmed Differential Comment . Platelet Estimate Normal Platelet Morphology Normal Ovalocytes 2+ H Sodium 141 141 Potassium 3.9 4.0 Chloride 108 H 108 H Carbon Dioxide 25.5 26.6 Anion Gap 8 6 BUN 16 19 H Creatinine 0.73 0.83 Estimated GFR Greater than 89 Greater than 89 Random Glucose 106 128 H Calcium 8.1 L 8.2 L - Imaging Impressions Elbow X-Ray 06/08/18 00:00 CONCLUSION: Good position and alignment on this postoperative study. Elbow X-Ray 06/08/18 00:00 CONCLUSION: Improved alignment of the glenohumeral joint following manipulation Comminuted fracture the radial head is again noted. Assessment and Plan - Problem List (1) Fracture, radius, proximal Code(s): S52.109A - Unspecified fracture of upper end of unspecified radius, initial encounter for closed fracture Status: Acute Qualifiers: Encounter type: initial encounter Fracture type: closed Laterality: unspecified laterality (2) Closed fracture dislocation of elbow Code(s): S42.409A - Unspecified fracture of lower end of unspecified humerus, initial encounter for closed fracture Status: Acute Qualifiers: Encounter type: initial encounter Laterality: left Qualified Code(s): S42.402A - Unspecified fracture of lower end of left humerus, initial encounter for closed fracture (3) Fracture of coronoid process of ulna, left, closed Code(s): S52.042A - Displaced fracture of coronoid process of left ulna, initial encounter for closed fracture Status: Acute Qualifiers: Encounter type: initial encounter Fracture alignment: displaced Qualified Code(s): S52.042A - Displaced fracture of coronoid process of left ulna, initial encounter for closed fracture - Assessment and Plan 1) Right Radial Head Fx s/p radial head replacement -POD 1 -NWB -ok for light things such as eating/drinking and ADLs. no pushing off or lifting -daily dressing changes POD 2 with xeroform/[place] -patient will need to be instructed and given supplies from hospital to perform own dressing changes -ortho clear for DC home 2) Left Elbow dislocation with radial head fx s/p closed reduction with subsequent TORSTEN - POD 1 -NWB -maintain splint at all times -ortho cleared for DC home -f/u with [facility] or [facility] in 2 weeks. -plan for progressing to ROM elbow brace on left arm at that time [employer] Prescription Drug Monitoring Database has been queried and verified prior to prescribing the controlled substance. Acute pain exception. This patient has normal, predicted, physiological, and time limited response to an adverse mechanical stimulus associated with surgery, trauma, or acute illness as described in my notes. There is a lack of alternative treatment options other than to include the prescribed narcotic treatment for this condition.
--- NOTE | 2018-06-09 07:56 | P.DCO ---
- Physical Therapy Order: Evaluate and treat, Improve ambulation, Strength and gait training - Occupational Therapy Order: Evaluate and treat, Improve ADL, Gross motor coordination, Fine motor coordination - Home Health Nursing Order: Medical education, Signs/symptoms of disease process, Medication education-adverse effect, Nursing assessment with vital signs - Case Management Consult Yes - Certification I have seen patient Clark Diaz on 06/09/18. My clinical findings support the need for the requested home health care services because: Limited mobility due to disease progression, Deconditioned with increased weakness, Limited ability to care for self, High risk of falls, Infection with risk of complications I certify that my clinical findings support that this patient is homebound because: Post-op weakness, Unsteady gait/balance, Unsafe to leave home unassisted
[2018-06-09] MEDS: Senna/Docusate Sodium 8.6/50 MG Tablet PO SCH (08:31)
[2018-06-09] MEDS: Famotidine 20 MG Tablet PO SCH (08:31)
[2018-06-09] MEDS: Calcium/Vitamin D 250/125 MG Tablet PO SCH ×2 (08:31→13:17)
[2018-06-09] MEDS: Lidocaine 5% Patch T-DERMAL SCH (08:31)
[2018-06-09 09:15] VITALS: O2SAT 97
[2018-06-09 11:16] LABS: Baso % (Auto) 0.4 % (0.0-2.0); Eos # (Auto) 0.1 th/mm3 (0.0-0.4); Eos % (Auto) 1.9 % (0.0-4.0); Hematocrit 34.2 % (39.0-51.0); Hemoglobin 10.9 gm/dL (13.0-17.0); Lymph # (Auto) 1.8 th/mm3 (1.0-4.8); Lymph % (Auto) 25.8 % (9.0-44.0); Mean Corpuscular HGB Conc 31.9 % (32.0-36.0); Mean Corpuscular Hemoglobin 19.2 pg (27.0-34.0); Mean Corpuscular Volume 60.3 fL (80.0-100.0); Mean Platelet Volume 9.6 fL (7.0-11.0); Mono # (Auto) 0.6 th/mm3 (0.0-0.9); Mono % (Auto) 8.2 % (0.0-8.0); Neut # (Auto) 4.5 th/mm3 (1.8-7.7); Neut % (Auto) 63.7 % (16.0-70.0); Platelet Count 204 th/mm3 (150-450); Red Blood Count 5.67 mil/mm3 (4.50-5.90); Red Cell Distribution Width 15.9 % (11.6-17.2); White Blood Count 7.1 th/mm3 (4.0-11.0)
[2018-06-09 11:56] VITALS: RESP 18
[2018-06-09 12:04] LABS: Ovalocytes 2+; Platelet Estimate Normal (Normal); Platelet Morphology Normal (Normal)
--- NOTE | 2018-06-09 13:58 | P.DS ---
<DolorestarunPericoAugustinEsmer norton F - Last Filed: 06/09/18 13:48> Date of admission: 06/05/18 11:42 Primary care physician: UNKNOWN Attending physician on discharge: Jamie Mcdaniels Anticipated date of discharge: 06/09/18 Brief History from admission: Fall DS: Diagnosis - Discharge Diagnosis (1) Multiple rib fractures Status: Acute (2) Closed fracture dislocation of elbow Status: Acute (3) Fracture, radius, proximal Status: Acute (4) Fracture of coronoid process of ulna, left, closed Status: Acute (5) Fracture of radial head, right, closed Status: Acute DS: Medications - Discharge Medications Prescriptions: hydrocodone-acetaminophen [[place]] 1 tab PO Q4H #40 tab ibuprofen [Motrin IB] 400 mg PO Q8H PRN 5 Days tab PRN Reason: Pain lidocaine [Lidoderm] 1 patch TRANSDERMAL DAILY 7 Days each methocarbamol 500 mg PO Q8HR 7 Days #21 tab DS: Summary Hospital Course: [facility] [facility]: This is a 38-year-old male who sustained a fall. He fell from a roof approximately 15 feet at a construction site. He landed on his face and right side. Positive LOC. INJURIES: Concussion RIGHT scalp laceration RIGHT rib fxs (4, 5) RIGHT pulmonary contusion BILAT radial head fx RIGHT coronoid tip fx LEFT coronoid fx LEFT elbow fx and dislocation PMHx: GERD Procedures: 06/05: LEFT elbow reduced 06/08: LEFT elbow manipulation under anesthesia with fluoroscopy, open treatment of RIGHT radial head fracture with replacement Consults: Orthopedics. Case management. The patient is now tolerating a po diet. Eating and drinking well. Pain is being managed well with PO pain medications, and patient is being a provided with a script for pain meds upon discharge -provided by orthopedics. [This patient will be prescribed narcotic pain medications due to his traumatic injuries. The patient has a normal physiological response to severe traumatic injuries and surgery. He will need acute pain management with prescribed narcotic treatment.] (NO driving while taking narcotic pain medication enforced to patient.) Pt is having regular bowel movements, and have recommended to patient to continue with stool softeners while taking narcotic pain medications to prevent constipation. Pt has been participating in PT and OT while admitted at [facility] and has been ambulating with their assistance and independently. PT recommends [facility] PT. [id number] completed. All follow up appointments have been provided and discussed with the patient. It is recommended that the patient keeps all his follow up appointments for continued recovery. Requested discharge teaching for daily dressing changes per orthopedic recommendations. Patient's condition and plan of care discussed with collaborating trauma surgeon. He is agreeable to plan for discharge today. Therefore, the patient is stable to be safely discharged home from a trauma surgery standpoint. Thank you for allowing us to participate in his care. We wish Clark the best in his recovery. Concussion Prevent secondary head injury Postconcussive education Serial neuro checks Follow-up in outpatient concussion program RIGHT scalp laceration Wash daily with soap and water. Pat dry. Return to PCP for suture removal in 12-14 days RIGHT rib fxs (4, 5) RIGHT pulmonary contusion O2 nasal cannula as needed Supportive care Aggressive pulmonary toileting Chest x-ray as needed Pain management Encourage out of bed PT and OT ordered Bowel regimen Lovenox for DVT prophylaxis BILAT radial head fx RIGHT coronoid tip fx LEFT coronoid fx LEFT elbow fx and dislocation Orthopedics consulted and assisting in management and care 06/08: LEFT elbow manipulation under anesthesia with fluoroscopy, open treatment of RIGHT radial head fracture with replacement Supportive care Pain management Encourage out of bed PT and OT ordered NWB BUE Dressing changes per orthopedics Antibiotics per orthopedics - Bowel regimen Lovenox for DVT prophylaxis Orthopedics have cleared the patient for discharge Follow-up outpatient - Time Spent with Patient Total time spent providing and/or coordinating discharge services: Greater than 30 minutes - Quality: VTE Deep Vein Thrombosis/Pulmonary Embolism Present on Admission: No Exam Vital signs: Vital Signs 06/08/18 16:00 06/08/18 20:00 06/09/18 00:00 Temperature 97.6 F 98.4 F 98.7 F Pulse Rate 84 76 66 Respiratory Rate 18 18 18 Blood Pressure 148/92 H 154/70 H 135/70 Pulse Oximetry 93 L 95 97 06/09/18 04:00 06/09/18 06:25 06/09/18 08:00 Temperature 98.6 F 98.1 F Pulse Rate 73 74 Respiratory Rate 18 18 20 Blood Pressure 136/61 150/72 H Pulse Oximetry 98 97 06/09/18 11:54 Temperature Pulse Rate Respiratory Rate 18 Blood Pressure Pulse Oximetry Intake & Output 06/08/18 06/09/18 06/09/18 18:59 06:59 18:59 Intake Total 1210 / 1210 220 / 220 50 / 50 Output Total 50 / 50 Balance 1160 / 1160 220 / 220 50 / 50 Weight 80.2 kg Intake: IV 850 / 850 100 / 100 50 / 50 LR 1000 mL Inj 1,000 ML @ 30 800 / 800 mls/hr IV.CONT .Q24H ONE Rx#: [id number] Ancef 2 GM Premix Inj 2 gm In 50 / 50 100 / 100 50 / 50 50 ml @ 100 mls/hr IV.SIG Q8H LEIGH Rx#:[id number] Oral 360 / 360 120 / 120 Output: Estimated Blood Loss 50 / 50 Other: # Voids 2 3 Date of Last Bowel Movement 06/05/18 06/05/18 Narrative: GENERAL: This is a 38-year-old male sitting up in bed. No distress noted. SKIN: Warm and dry. HEAD: Atraumatic. Normocephalic. EYES: PERRLA ENT: No nasal bleeding or discharge. Mucous membranes pink and moist. NECK: Trachea midline. No JVD. CARDIOVASCULAR: Regular rate and rhythm. RESPIRATORY: No accessory muscle use. Lungs are clear to auscultation. Breath sounds equal bilaterally. No distress or dyspnea. GASTROINTESTINAL: BS + x 4 quads. Abdomen soft, non-tender, nondistended. MUSCULOSKELETAL: Extremities without cyanosis, or edema. Left upper extremity splint in place and wrapped in Jama bandage. Right lower extremity wrapped in Jama bandage. + peripheral pulses x 4 extremities. Warm with good capillary refill and sensation. MAEW. NEUROLOGICAL: Awake and alert. Normal speech and pattern. Results Procedures completed during hospitalization: . Labs on day of discharge: Labs from last 24 hours 06/09/18 06/09/18 06/08/18 10:35 04:46 13:46 WBC 7.1 RBC 5.67 Hgb 10.9 L Hct 34.2 L MCV 60.3 L MCH 19.2 L MCHC 31.9 L RDW 15.9 Plt Count 204 MPV 9.6 Prelim Diff (Auto) Slide review pending Neut % (Auto) 63.7 Lymph % (Auto) 25.8 [place] % (Auto) 8.2 H Eos % (Auto) 1.9 Baso % (Auto) 0.4 Neut # (Auto) 4.5 Lymph # (Auto) 1.8 [place] # (Auto) 0.6 Eos # (Auto) 0.1 Baso # (Auto) 0.0 WBC Differential . Diff Scan Auto diff confirmed Differential Comment . Platelet Estimate Normal Platelet Morphology Normal Ovalocytes 2+ H Sodium 141 141 Potassium 4.0 3.9 Chloride 108 H 108 H Carbon Dioxide 26.6 25.5 Anion Gap 6 8 BUN 19 H 16 Creatinine 0.83 0.73 Estimated GFR Greater than 89 Greater than 89 Random Glucose 128 H 106 Calcium 8.2 L 8.1 L 06/08/18 13:46 WBC 9.7 RBC 5.95 H Hgb 11.6 L Hct 35.1 L MCV 59.1 L MCH 19.5 L MCHC 33.0 RDW 15.8 Plt Count 168 MPV 9.2 Prelim Diff (Auto) Slide review pending Neut % (Auto) 90.0 H Lymph % (Auto) 7.3 L [place] % (Auto) 2.1 Eos % (Auto) 0.4 Baso % (Auto) 0.2 Neut # (Auto) 8.7 H Lymph # (Auto) 0.7 L [place] # (Auto) 0.2 Eos # (Auto) 0.0 Baso # (Auto) 0.0 WBC Differential . Diff Scan Auto diff confirmed Differential Comment . Platelet Estimate Normal Platelet Morphology Normal Ovalocytes 2+ H Sodium Potassium Chloride Carbon Dioxide Anion Gap BUN Creatinine Estimated GFR Random Glucose Calcium - Impressions ITS Impressions Humerus X-Ray 06/05/18 00:00 CONCLUSION: Fracture dislocation at the elbow joint with a fracture through the radial head. Associated soft tissue swelling is present. The left humerus is intact. Radius/Ulna X-Ray 06/05/18 00:00 CONCLUSION: 1. Reduction of the elbow joint dislocation. 2. However, there are osseous densities projecting over the antecubital fossa which may represent displaced fracture fragments the joint space. Pelvis X-Ray 06/05/18 11:09 CONCLUSION: Limited exam, negative Abdomen/Pelvis CT 06/05/18 11:14 CONCLUSION: 1. No acute injury is identified within the abdomen or pelvis. 2. Small hiatal hernia with dilated fluid-filled distal esophagus. Chest CT 06/05/18 11:14 CONCLUSION: 1. There are acute fractures of the right fourth and fifth ribs, as above. No pneumothorax is present. No other acute abnormality is identified. 2. Dilated fluid-filled esophagus likely secondary to reflux. Cervical Spine CT 06/05/18 11:15 CONCLUSION: No acute cervical spine abnormality is identified. There is multilevel degenerative disc disease. Face CT 06/05/18 11:15 CONCLUSION: 1. No maxillofacial fracture is identified. 2. There is right frontal scalp and right periorbital soft tissue swelling. Head CT 06/05/18 11:15 CONCLUSION: 1. Right frontal scalp and right periorbital soft tissue swelling. There is associated subcutaneous air suggesting laceration or open wound. 2. The skull fracture or acute intracranial abnormality is identified. . Chest X-Ray 06/06/18 00:00 CONCLUSION: Mild bibasilar parenchymal opacities Elbow CT 06/06/18 00:00 CONCLUSION: 1. Comminuted and displaced fracturing of the radial head as described. 2. Nondisplaced fracture of the coronoid process of the ulna. Elbow X-Ray 06/08/18 00:00 CONCLUSION: Good position and alignment on this postoperative study. <Jamie Mcdaniels - Last Filed: 06/09/18 15:47> Date of admission: 06/05/18 11:42 Primary care physician: UNKNOWN DS: Summary - Time Spent with Patient Total time spent providing and/or coordinating discharge services: Exam Vital signs: Vital Signs 06/08/18 16:00 06/08/18 20:00 06/09/18 00:00 Temperature 97.6 F 98.4 F 98.7 F Pulse Rate 84 76 66 Respiratory Rate 18 18 18 Blood Pressure 148/92 H 154/70 H 135/70 Pulse Oximetry 93 L 95 97 06/09/18 04:00 06/09/18 06:25 06/09/18 08:00 Temperature 98.6 F 98.1 F Pulse Rate 73 74 Respiratory Rate 18 18 20 Blood Pressure 136/61 150/72 H Pulse Oximetry 98 97 06/09/18 11:54 06/09/18 12:00 06/09/18 13:48 Temperature 98.0 F Pulse Rate 72 Respiratory Rate 18 20 18 Blood Pressure 176/83 H Pulse Oximetry 97 Intake & Output 06/08/18 06/09/18 06/09/18 18:59 06:59 18:59 Intake Total 1210 / 1210 220 / 220 50 / 50 Output Total 50 / 50 Balance 1160 / 1160 220 / 220 50 / 50 Weight 80.2 kg Intake: IV 850 / 850 100 / 100 50 / 50 LR 1000 mL Inj 1,000 ML @ 30 800 / 800 mls/hr IV.CONT .Q24H ONE Rx#: [id number] Ancef 2 GM Premix Inj 2 gm In 50 / 50 100 / 100 50 / 50 50 ml @ 100 mls/hr IV.SIG Q8H LEIGH Rx#:[id number] Oral 360 / 360 120 / 120 Output: Estimated Blood Loss 50 / 50 Other: # Voids 2 3 Date of Last Bowel Movement 06/05/18 06/05/18 Results Labs on day of discharge: Labs from last 24 hours 06/09/18 06/09/18 10:35 04:46 WBC 7.1 RBC 5.67 Hgb 10.9 L Hct 34.2 L MCV 60.3 L MCH 19.2 L MCHC 31.9 L RDW 15.9 Plt Count 204 MPV 9.6 Prelim Diff (Auto) Slide review pending Neut % (Auto) 63.7 Lymph % (Auto) 25.8 [place] % (Auto) 8.2 H Eos % (Auto) 1.9 Baso % (Auto) 0.4 Neut # (Auto) 4.5 Lymph # (Auto) 1.8 [place] # (Auto) 0.6 Eos # (Auto) 0.1 Baso # (Auto) 0.0 WBC Differential . Diff Scan Auto diff confirmed Differential Comment . Platelet Estimate Normal Platelet Morphology Normal Ovalocytes 2+ H Sodium 141 Potassium 4.0 Chloride 108 H Carbon Dioxide 26.6 Anion Gap 6 BUN 19 H Creatinine 0.83 Estimated GFR Greater than 89 Random Glucose 128 H Calcium 8.2 L - Impressions ITS Impressions Humerus X-Ray 06/05/18 00:00 CONCLUSION: Fracture dislocation at the elbow joint with a fracture through the radial head. Associated soft tissue swelling is present. The left humerus is intact. Radius/Ulna X-Ray 06/05/18 00:00 CONCLUSION: 1. Reduction of the elbow joint dislocation. 2. However, there are osseous densities projecting over the antecubital fossa which may represent displaced fracture fragments the joint space. Pelvis X-Ray 06/05/18 11:09 CONCLUSION: Limited exam, negative Abdomen/Pelvis CT 06/05/18 11:14 CONCLUSION: 1. No acute injury is identified within the abdomen or pelvis. 2. Small hiatal hernia with dilated fluid-filled distal esophagus. Chest CT 06/05/18 11:14 CONCLUSION: 1. There are acute fractures of the right fourth and fifth ribs, as above. No pneumothorax is present. No other acute abnormality is identified. 2. Dilated fluid-filled esophagus likely secondary to reflux. Cervical Spine CT 06/05/18 11:15 CONCLUSION: No acute cervical spine abnormality is identified. There is multilevel degenerative disc disease. Face CT 06/05/18 11:15 CONCLUSION: 1. No maxillofacial fracture is identified. 2. There is right frontal scalp and right periorbital soft tissue swelling. Head CT 06/05/18 11:15 CONCLUSION: 1. Right frontal scalp and right periorbital soft tissue swelling. There is associated subcutaneous air suggesting laceration or open wound. 2. The skull fracture or acute intracranial abnormality is identified. . Chest X-Ray 06/06/18 00:00 CONCLUSION: Mild bibasilar parenchymal opacities Elbow CT 06/06/18 00:00 CONCLUSION: 1. Comminuted and displaced fracturing of the radial head as described. 2. Nondisplaced fracture of the coronoid process of the ulna. Elbow X-Ray 06/08/18 00:00 CONCLUSION: Good position and alignment on this postoperative study. - Additional Comments The exam, history, and the medical decision-making described in the above note were completed with the assistance of the mid-level provider. I reviewed and agree with the findings presented. I attest that I had a [id number] encounter with the patient on the same day, and personally performed and documented my assessment and findings in the medical record. Discharge Plan - Discharge Order Discharge Orders: Discharge Order (Routine); Ordered 06/09/18 Ordered By: Esmer Patel Orthopedic Clear for Discharge (Routine); Ordered 06/09/18 Ordered By: Johnny Boudreaux - Discharge Details Anticipated Discharge Date: 06/09/18 - Physicians Team Primary Care Provider: UNKNOWN, Attending Provider: Mo Gillis Other Providers: Joo Youssef MD ; Jamie Mcdaniels MD ; [employer] ; Reynaldo Hearn MD ; Esmer Patel ARNP ; Gustavo Rhodes MD ; Chiquita Mai MD ; Jozef Ramey ARNP ; Mo Gillis MD ; Vinnie Singh MD ; Azam Olmstead MD
[2018-06-09 15:05] VITALS: BP 176/83; PULSE 72; TEMP 98
== END 2018-06-09 14:48 | disposition home health service (06) ==
LOC: NEPI 11:06 → EDBD 11:42 → NEDA 11:42 → N03 12:20 → N06 17:17
PROVIDERS: ADMIT Surgery; ATTEND Surgery
PROC: ORIFELB (2018-06-08 09:28)